=== PATIENT | female | born 1945 | race Caucasian/White ===

== ENCOUNTER → 2016-09-08 | Outpatient (CLI) | payer MEDICARE, OTHER ==
[2016-09-08 14:47] LABS: Blood Urea Nitrogen 23 mg/dL (7-17); Non-African American GFR(MDRD) >60 (>60 ml/min/1.73 sqM)
--- NOTE | 2016-09-08 16:05 | CT ---
EXAMINATION TYPE: CT urogram wo/w con DATE OF EXAM: 09/08/2016 3:41 PM COMPARISON: NONE HISTORY: 70-year-old female with gross hematuria TECHNIQUE: Contiguous axial scanning of the abdomen and pelvis performed without and with IV Contrast , patient injected with 100 mL of Omnipaque 300. Delayed images through the kidneys and bladder were obtained. Coronal/sagittal reconstructions performed. 3-D reconstructions generated on a dedicated in dependent workstation. CT DLP: 1105.2 mGycm Automated exposure control for dose reduction was used. FINDINGS: The heart is normal size without pericardial effusion. Lung bases clear without pleural effusion. No focal liver lesion or biliary ductal dilatation. Portal venous system is patent. Gallbladder, adrenal glands, spleen, and atrophic pancreas show no gross abnormality. There is a dive rticulum of the second portion of the duodenum projecting into the pancreatic head region. Multiple cortical defects are seen involving the right kidney giving it a lobulated appearance. There is symmetric uptake and excretion of contrast from the kidneys. No nephrolithiasis or hydronephrosis is seen. No suspicious renal lesion. No suspicious filling defects seen within the proximal collecting system or along the opacified porti ons of the ureters. Only the distal aspects of both ureters opacified but show no suspicious thickeni ng. No dilated small bowel, free fluid, or free air. No mesenteric or retroperitoneal lymphadenopathy. There is moderate stool burden and suspected prior appendectomy given some surgical material in the r ight lower quadrant. There is a 2.8 long segment of moderate circumferential wall thickening at the j unction of the cecum and ascending colon, axial series 12 image 71 and coronal series 16 image 53. Th is may reflect a prominent peristaltic contraction. Moderate stool burden without pericolonic inflamm atory change. There is a staple line relating to prior rectosigmoid resection and re-anastomosis. A f ew scattered sigmoid diverticula are noted without pericolonic inflammatory change. There is a Dye hernia in the umbilical region measuring 4.7 cm wide containing transverse colon. No obstructive or inflammatory changes. No suspicious filling defects seen along the opacified posterior portion of the bladder. Patient is status post hysterectomy. The left ovary is not visualized. There is a 5.7 cm cystic lesion in the right adnexa with possible surgical material. A thin internal septation is also suggested. No pelvic lymphadenopathy seen. Bones: Degenerative disc disease most severe at L2-L3 and L5-S1. There is degenerative grade 1 retrol isthesis at L2-L3 and at least moderate right neuroforaminal stenosis at this level. IMPRESSION: 1. MULTIPLE CORTICAL DEFECTS INVOLVING THE RIGHT KIDNEY GIVING IT A LOBULATED CONTOUR. FINDINGS COULD REFLECT MULTIPLE PRIOR VASCULAR OR INFECTIOUS INSULTS. CLINICALLY CORRELATE. 2. NO NEPHROLITHIASIS, SUSPICIOUS RENAL LESION, OR ABNORMALITY SEEN WITHIN THE COLLECTING SYSTEMS. ON LY THE DISTAL ASPECTS OF THE URETERS REMAIN UNOPACIFIED BUT SHOW NO ABNORMAL THICKENING. 3. A 5.7 CM CYSTIC LESION IN THE RIGHT ADNEXA LIKELY OF OVARIAN ORIGIN. THIS IS MILDLY COMPLEX WITH A N INTERNAL SEPTATION. ULTRASOUND TO FURTHER CHARACTERIZE AND TO DETERMINE SUBSEQUENT RECOMMENDATIONS. 4. EITHER A PROMINENT PERISTALTIC CONTRACTION OR ANNULAR NEOPLASM AT THE CECAL COLONIC JUNCTION. LESLY MMEND DIRECT VISUALIZATION. 5. A 4.7 CM DYE HERNIA OF THE UMBILICUS INVOLVING MID TRANSVERSE COLON.
== END | disposition home or self-care (01) ==
LOC: RADCTMAIN 14:10
PROVIDERS: ATTEND Urology
DX: R93.421 Abnormal radiologic findings on diagnostic imaging of right kidney (principal); R31.0 Gross hematuria; Z88.5 Allergy status to narcotic agent; Z88.1 Allergy status to other antibiotic agents
CPT/HCPCS: 82565; 84520; 74178; 36415; 74400; Q9967

== ENCOUNTER 2018-06-12 10:28 | Inpatient (IN) | payer MEDICARE, OTHER ==
[2018-06-12 13:22] VITALS: BMI 20.2
--- NOTE | 2018-06-12 14:03 | P.HPIM ---
History of Present Illness This is a pleasant 72 years old female with past medical history of GERD, GI bleed, hyperlipidemia, hypertension, osteoarthritis, fibromyalgia, right breast cancer with lumpectomy and status post chemoradiotherapy in 2003. Who presents because of recurrent nausea and vomiting for 3 days, fever and cough. Patient was transferred from [facility] for 3 day history of vomiting, diarrhea and intermittent abdominal pain with fever attended 0.5. She has CT of the abdomen showing possible cystitis and perinephritic stranding on the UA is negative however patient was started on Levaquin and large ovarian mass. Chest x-ray showing right infiltrate. Her nausea vomiting and loose bowel movement have resolved now however she has some coughing. Labs from [facility] reviewed and showing normal knee functions and WBC, mildly low potassium Review of Systems CONSTITUTIONAL: No fever, no malaise, no fatigue. HEENT: No recent visual problems or hearing problems. Denied any sore throat. CARDIOVASCULAR: No orthopnea, PND, no palpitations, no syncope. PULMONARY: No shortness of breath, no cough, no hemoptysis. GASTROINTESTINAL: No diarrhea, no nausea, no vomiting, no abdominal pain. Normoactive bowel sounds. NEUROLOGICAL: No headaches, no weakness, no numbness. HEMATOLOGICAL: Denies any bleeding or petechiae. GENITOURINARY: Denies any burning micturition, frequency, or urgency. MUSCULOSKELETAL/RHEUMATOLOGICAL: Denies any joint pain, swelling, or any muscle pain. ENDOCRINE: Denies any polyuria or polydipsia. Past Medical History Past Medical History: Cancer, Fibromyalgia, GERD/Reflux, GI Bleed, Hyperlipidemia, Hypertension, Memory Impairment, Osteoarthritis (OA), Pneumonia Additional Past Medical History / Comment(s): palpations, right breast cancer with lumpectomy had chemo and radiation in 2003, possible tia - unconfirmed, prior etoh hx clean for 20 years ago, GI bleed with infected abcess in colon requiring some resection and colostomy in 07/2012 which was reversed in 02/2013 History of Any Multi-Drug Resistant Organisms: None Reported Past Surgical History: Appendectomy, Bowel Resection, Breast Surgery, Section, Heart Catheterization, Hysterectomy Additional Past Surgical History / Comment(s): right breast lumpectomy, carpal tunnel surgery, left foot surgery,colon resection secondary to abcess with colostomy in 07/2012 which was reversed in 02/2013 Past Anesthesia/Blood Transfusion Reactions: No Reported Reaction Past Psychological History: No Psychological Hx Reported Smoking Status: Never smoker Past Alcohol Use History: None Reported Additional Past Alcohol Use History / Comment(s): pt had etoh hx states she only has 1-2 glasses a wine a day Past Drug Use History: None Reported - Past Family History Father Family Medical History: Myocardial Infarction (ME) Additional Family Medical History / Comment(s): at 49 Mother Family Medical History: Cancer Additional Family Medical History / Comment(s): of leukemia at 36 Medications and Allergies Home Medications Medication Instructions Recorded Confirmed Type ALPRAZolam [Xanax] 1 tab PO DAILY PRN 03/25/14 03/25/14 History Omeprazole [PriLOSEC] 20 mg PO [id number]-[id number] 03/25/14 03/25/14 History Pravastatin Sodium [Pravachol] 1 tab PO HS 03/25/14 03/25/14 History Pregabalin [Lyrica] 75 mg PO BID 03/25/14 03/25/14 History Ranitidine HCl [Zantac] 1 tab PO BID 03/25/14 03/25/14 History Hydrocodone/Acetaminophen [[place] 1 each PO Q4HR PRN #30 tab 03/27/14 Rx 5-325] Melatonin 1 mg PO HS PRN #30 tablet 03/27/14 Rx Allergies Allergy/AdvReac Type Severity Reaction Status Date / Time hydromorphone HCl AdvReac Hallucinati Verified 06/12/18 13:25 [From Dilaudid] ons metronidazole [From Flagyl] AdvReac Nausea & Verified 06/12/18 13:25 Vomiting Physical Exam GENERAL: The patient is alert and oriented x3, not in any acute distress. Well developed, well nourished. HEENT: Pupils are round and equally reacting to light. EOMI. No scleral icterus. No conjunctival pallor. Normocephalic, atraumatic. No pharyngeal erythema. No thyromegaly. CARDIOVASCULAR: S1 and S2 present. No murmurs, rubs, or gallops. PULMONARY: Chest is clear to auscultation, no wheezing or crackles. ABDOMEN: Soft, nontender, nondistended, normoactive bowel sounds. No palpable organomegaly. MUSCULOSKELETAL: No joint swelling or deformity. EXTREMITIES: No cyanosis, clubbing, or pedal edema. NEUROLOGICAL: Gross neurological examination did not reveal any focal deficits. SKIN: No rashes. Thrombosis Risk Factor Assmnt - Choose All That Apply Each Risk Factor Represents 2 Points: Age 61-74 years Thrombosis Risk Factor Assessment Total Risk Factor Score: 2 Thrombosis Risk Factor Assessment Level: Low Risk Assessment and Plan Assessment: Genitalia quite pneumonia Possible gastroenteritis, improving Recurrent Vomiting, improving Dehydration Large Ovarian Mass, newly diagnosed History of current History of gently Hyperlipidemia Essential hypertension Osteoarthritis History of fibromyalgia History of right breast cancer with lumpectomy and status post chemoradiotherapy in 2003. Plan: This is a pleasant 72 years old female who presents with gastroenteritis and ovarian mass. Continue with antibiotics with Levaquin. IV fluids. advance diet as tolerated. Sent blood culture and sputum culture.oxygen therapy, check influenza. 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 Continue same treatment. Continue with symptomatic treatment. Resume home medication. Monitor lytes and vitals. DVT and GI prophylaxis. Further recommendations of the clinical course of the patient DVT prophylaxis: Subcutaneous heparin GI Prophylaxis: Pepcid PT/OT: Pending Prognosis is guarded
[2018-06-12] MEDS ORDERED: LORazepam 2 MG/ML INJ IV PRN ×2 (14:26)
[2018-06-12] MEDS ORDERED: guaiFENesin SYRUP 100MG/5ML 200 MG/10 ML CUP PO PRN (15:56)
[2018-06-12] MEDS: LEVOFLOXACIN 500MG-D5W PMX 500 MG in DEXTROSE/WATER 1 100ML.BAG IVPB SCH (16:23)
[2018-06-12] MEDS: SODIUM CHLORIDE 0.9% 1,000 ML IV SCH (16:23)
--- NOTE | 2018-06-12 16:36 | US ---
EXAMINATION TYPE: US pelvis complete transvag DATE OF EXAM: 06/12/2018 COMPARISON: NONE CLINICAL HISTORY: right ovarian mass. No prior here, mass seen on imaging from another institution. TECHNIQUE: Transvaginal (TV) and Transabdominal (TA) . Transabdominal sonographic images of the pel vis were acquired. Transvaginal sonographic images were medically necessary to better assess the fol lowing anatomy: cystic mass Date of LMP: postmenopausal, no HRT. EXAM MEASUREMENTS: Uterus: Surgically absent cm Endometrial Stripe: Surgically absent cm Right Ovary: large cystic mass seen Left Ovary: Surgically absent cm history of hysterectomy and one oophorectomy 29 years ago, patient unsure which ovary was removed. 1. Uterus: Surgically absent 2. Endometrium: Surgically absent 3. Right Ovary: 9.2 x 6.0 x 8.9 cm cystic mass with septations, there appears to be an ovarian rind of tissue. 4. Left Ovary: Surgically absent 5. Bilateral Adnexa: large cystic mass right adnexal region. 6. Posterior cul-de-sac: no free fluid On transabdominal imaging the cystic mass appeared to sit to the left of the bladder, on transvaginal imaging the mass was definitely to the right side of the pelvis. IMPRESSION: There is a large cystic fluid collection in the pelvis. No solid pelvic mass. There is a 5.5 cm cystic fluid collection in the pelvis on the old CT scan of 09/08/2016. This is probably the alessandra e fluid and now appears increased.
[2018-06-12] MEDS: PANTOPRAZOLE 40 MG TABLET PO SCH (17:49)
[2018-06-12] MEDS: HEPARIN SODIUM,PORCINE 5,000 UNIT/ML 1 ML VIAL SQ SCH (17:49)
[2018-06-12] MEDS: THIAMINE 100 MG TAB PO SCH (17:49)
[2018-06-12] MEDS: OSELTAMIVIR 75 MG CAP PO SCH (17:49)
[2018-06-12] MEDS: HYDROcodone/APAP 10-325MG 1 EACH TAB PO PRN (17:52)
[2018-06-12] MEDS: PRAVASTATIN SODIUM 40 MG TAB PO SCH (20:37)
[2018-06-12] MEDS: POTASSIUM CHLORIDE ER 20 MEQ TAB.ER PO SCH (20:37)
[2018-06-12] MEDS: FAMOTIDINE 20 MG/2 ML VIAL IV SCH (20:37)
[2018-06-12] MEDS: METOPROLOL TARTRATE 25 MG TAB PO SCH (20:37)
[2018-06-12] MEDS: LORazepam 2 MG/ML INJ IV PRN (20:38)
[2018-06-13] MEDS: HEPARIN SODIUM,PORCINE 5,000 UNIT/ML 1 ML VIAL SQ SCH ×2 (06:05→18:20)
[2018-06-13] MEDS: OSELTAMIVIR 75 MG CAP PO SCH ×2 (06:07→18:20)
[2018-06-13] MEDS: SODIUM CHLORIDE 0.9% 1,000 ML IV SCH ×2 (06:07→18:18)
--- NOTE | 2018-06-13 08:20 | P.CON ---
Consult Note - . Consult date: 06/13/18 Assessment/Plan:: This is a 72-year-old white female 3 para 3003 status post DANICA LSO for endometriosis per Dr. garcia in the past. Patient presented as an admission from [facility] with the flu. She reports emesis for 5 days, sweating, increasing cough and fever. She is positive for influenza A. In the course of her workup, a computed tomography scan of the abdomen and pelvis was performed and this revealed a right cystic ovarian mass. Patient states that this time she is feeling improved. She continues to cough and have low-grade fever. Past obstetric history significant for normal spontaneous vaginal deliveries 2 , one section. Surgical history significant for DANICA LSO for endometriosis in the remote past per Dr. Medina. She had a right breast lumpectomy for cancer in 2003, followed up with chemotherapy and radiation. She was cared for by Dr. Jiang. She also has a history of colostomy secondary to what sounds like diverticular disease, cared for by Dr. Nino 5 years ago. A large colonic mass was removed at that time. Past medical history significant for hypercholesterolemia, fibromyalgia, osteoarthritis, hypertension, GERD. Breast cancer 2003 as noted above. Endometriosis in the remote past. Current medications from home Prilosec, Cymbalta, Bradley, Requip, Pravachol, Lopressor. Patient's primary care physician is Dr. Maynard. ALLERGIES include Flagyl to which reports nausea, diet and wanted to which reports "I went per [employer]." Family history mother at age 36 of leukemia. Father age 49 of myocardial infarction. She has a maternal aunt that had colon cancer. Social history negative for tobacco alcohol or drug use. Patient lives alone and [place]. She is . On exam she is 5 foot 6 inches, 57 kg, temperature 99.2, pulse 116, respirations 24, 92% O2 on 2 L of oxygen, blood pressure 150/87. Physical exam reveals poor dentition. No cervical lymphadenopathy, thyroid is negative. Breast exam reveals evidence of lumpectomy and radiation changes on the right breast. No nipple discharge, no axillary adenopathy, no other discernible lesions or masses. No skin dimpling. Cardiac exam reveals tachycardia, no obvious murmur click or rub. Chest exam reveals scattered rhonchi, patient is coughing frequently. Cough is productive for mucus. Abdomen is soft, distended , active bowel sounds. No rebound or guarding. No CVA tenderness. Extremities reveal diminished pulses, no edema. On pelvic exam external genitalia is hypo-estrogenized, age-appropriate. Vaginal cough reveals a firmness at the apex of the cuff. This is better delineated through rectal exam, stool sample sent to the lab for fit testing. There is a mass in the right hemipelvis that is firm, mobile, minimally tender. Rectal exam is otherwise negative. Ultrasound here reveals a right-sided cystic mass measuring 9.2 x 6.0 x 8.9 cm, it has septations but no calcifications and no solid components. The rest of the pelvis appears negative. Chest x-ray reveals a right pulmonary infiltrate. Lab dyscrasias noted with chloride 97, CO2 27, sodium 133, potassium 3.2, creatinine 0.5, calcium 8.2. Hemoglobin 15.1, hematocrit 45.1, WBCs 5.5, platelets 180,000. Impression: 72-year-old woman with multiple medical problems, currently admitted with the flu. Multiple lab dyscrasias noted. 9.2 cm cystic right pelvic mass, with a history of endometriosis and diverticulitis. Plan: OVA-1 testing has been requested and is pending. Continue medical management with Levaquin and correction of lab dyscrasias. I would consider following patient has an outpatient for further planning once ova testing has been received. Thank you for the consultation.
[2018-06-13] MEDS: METOPROLOL TARTRATE 25 MG TAB PO SCH ×2 (10:14→20:26)
[2018-06-13] MEDS: FAMOTIDINE 20 MG/2 ML VIAL IV SCH (10:15)
[2018-06-13] MEDS: FLUTICASONE 50MCG/SPRAY NASAL 16GM NASAL SCH (10:16)
[2018-06-13] MEDS: PANTOPRAZOLE 40 MG TABLET PO SCH ×2 (10:17→18:20)
[2018-06-13] MEDS: POTASSIUM CHLORIDE ER 20 MEQ TAB.ER PO SCH ×2 (10:17→20:23)
[2018-06-13] MEDS: DULoxetine HCL 60 MG CAPSULE.DR PO SCH (10:17)
[2018-06-13] MEDS: VENLAFAXINE HCL ER 150 MG CAP PO SCH (10:17)
[2018-06-13] MEDS: THIAMINE 100 MG TAB PO SCH ×2 (10:18→18:20)
--- NOTE | 2018-06-13 11:05 | XR ---
EXAMINATION TYPE: XR chest 1V portable DATE OF EXAM: 06/13/2018 COMPARISON: 07/10/2013 HISTORY: Cough possible pneumonia TECHNIQUE: Single frontal view of the chest is obtained. FINDINGS: Prominence to the right hilum. Subsegmental consolidation and small left effusion. Elevate d right hemidiaphragm. Arthropathy of the shoulders. No pneumothorax. Surgical clips overlying the ri ght axilla. Subsegmental changes right lung base. IMPRESSION: Bilateral lower lobe atelectasis or infiltrate with elevated right hemidiaphragm. Promin ence of the right hilum may reflect prominent pulmonary artery. Correlate clinically.
--- NOTE | 2018-06-13 11:12 | P.PN ---
Subjective This is a pleasant 72 years old female with past medical history of GERD, GI bleed, hyperlipidemia, hypertension, osteoarthritis, fibromyalgia, right breast cancer with lumpectomy and status post chemoradiotherapy in 2004. Who presents because of recurrent nausea and vomiting for 3 days, fever and cough. Patient was transferred from [facility] for 3 day history of vomiting, diarrhea and intermittent abdominal pain with fever attended 0.5. She has CT of the abdomen showing possible cystitis and perinephritic stranding on the UA is negative however patient was started on Levaquin and large ovarian mass. Chest x-ray showing right infiltrate. Her nausea vomiting and loose bowel movement have resolved now however she has some coughing. Labs from [facility] reviewed and showing normal knee functions and WBC, mildly low potassium 06/13/2018 Patients with dyspnea and coughing. She looks breathing quietly but she is tachypneic she has some secretions but nothing coming up with her dry cough. She denies chest pain. No abdominal pain or nausea vomiting she has normal bowel movements yesterday and looks like her bowel symptoms have improved. She looks anxious which could be related to her alcohol problem. Patient denies history of asthma or COPD. She says she hasn't smoked before. However she is telling me she uses inhaler at home about twice a week. Pulmonary team evaluated the patient. She is currently on Tamiflu and Levaquin. Normal saline at 75 mL/h.. She is also a considerable protocol. review of systems CONSTITUTIONAL: No fever, no malaise, no fatigue. HEENT: No recent visual problems or hearing problems. Denied any sore throat. CARDIOVASCULAR: No orthopnea, PND, no palpitations, no syncope. GASTROINTESTINAL: No diarrhea, no nausea, no vomiting, no abdominal pain. Normoactive bowel sounds. NEUROLOGICAL: No headaches, no weakness, no numbness. HEMATOLOGICAL: Denies any bleeding or petechiae. GENITOURINARY: Denies any burning micturition, frequency, or urgency. MUSCULOSKELETAL/RHEUMATOLOGICAL: Denies any joint pain, swelling, or any muscle pain. ENDOCRINE: Denies any polyuria or polydipsia. medication: Cymbalta, Pepcid, Flonase, potassium, heparin, [place], Ativan, levofloxacin, Lopressor, Tamiflu, Protonix, potassium chloride, Pravachol, Requip, thiamine and venlafaxine. Objective - Vital Signs Vital signs: Vital Signs Temp 99.2 F 06/13/18 05:27 Pulse 116 H 06/13/18 05:27 Resp 24 06/13/18 05:27 BP 150/87 06/13/18 05:27 Pulse Ox 92 L 06/13/18 05:27 Intake & Output 06/12/18 06/13/18 06/13/18 18:59 06:59 18:59 Intake Total 225 Balance 225 Weight 57 kg Intake: Intake, IV Titration 225 Amount Sodium Chloride 0.9% 1, 225 000 ml @ 75 mls/hr IV . [id number] ARMEN Rx#:[id number] Other: Voiding Method Toilet Toilet # Voids 1 - Exam GENERAL: The patient is alert and oriented x3, not in any acute distress. Well developed, well nourished. HEENT: Pupils are round and equally reacting to light. EOMI. No scleral icterus. No conjunctival pallor. Normocephalic, atraumatic. No pharyngeal erythema. No thyromegaly. CARDIOVASCULAR: S1 and S2 present. No murmurs, rubs, or gallops. -PULMONARY: Bilateral equal air entry, inspiratory crackles and expiratory wheezing. ABDOMEN: Soft, nontender, nondistended, normoactive bowel sounds. No palpable organomegaly. MUSCULOSKELETAL: No joint swelling or deformity. EXTREMITIES: No cyanosis, clubbing, or pedal edema. NEUROLOGICAL: Gross neurological examination did not reveal any focal deficits. SKIN: No rashes. - Labs Labs: Abnormal Lab Results - Last 24 Hours (Table) 06/12/18 Range/Units 15:07 Influenza Type A RNA Detected H (Not Detectd) Assessment and Plan Assessment: Genitalia quite pneumonia Possible gastroenteritis, improving Recurrent Vomiting, improving Dehydration Large Ovarian Mass, newly diagnosed History of current History of gently Hyperlipidemia Essential hypertension Osteoarthritis History of fibromyalgia History of right breast cancer with lumpectomy and status post chemoradiotherapy in 2003. Plan: This is a pleasant 72 years old female who presents with gastroenteritis and ovarian mass. Continue with antibiotics with Levaquin. IV fluids. advance diet as tolerated. Sent blood culture and sputum culture.oxygen therapy, check influenza. 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 Continue same treatment. Continue with symptomatic treatment. Resume home medication. Monitor lytes and vitals. DVT and GI prophylaxis. Further recommendations of the clinical course of the patient DVT prophylaxis: Subcutaneous heparin GI Prophylaxis: Pepcid PT/OT: Pending Prognosis is guarded
[2018-06-13] MEDS: GABAPENTIN 100 MG CAP PO SCH ×2 (13:34→20:23)
[2018-06-13 14:40] LABS: Appearance,Urine Clear (Clear); Bilirubin,Urine Negative (Negative); Blood,Urine Trace (Negative); Color,Urine Light Yellow; Glucose,Urine (UA) Negative (Negative); Ketones,Urine Negative (Negative); Leukocyte Esterase,Urine Negative (Negative); Mucus,Urine Rare /hpf; Nitrite,Urine Negative (Negative); PH, Urine 6.5 (5.0-8.0); Protein,Urine Negative (Negative); RBC,Urine 2 /hpf (0-5); Specific Gravity,Urine 1.009 (1.001-1.035); Squamous Epithelial Cell,Urine 1 /hpf (0-4); Urobilinogen,Urine <2.0 mg/dL (<2.0); WBC,Urine 1 /hpf (0-5)
[2018-06-13] MEDS ORDERED: LEVOFLOXACIN 500 MG TAB PO SCH (16:00)
[2018-06-13] MEDS: LEVOFLOXACIN 500MG-D5W PMX 500 MG in DEXTROSE/WATER 1 100ML.BAG IVPB SCH (18:19)
[2018-06-13] MEDS: methylPREDNISolone SOD SUCCI 40 MG/ML 1 ML VIAL IV SCH (18:24)
[2018-06-13] MEDS: HYDROcodone/APAP 10-325MG 1 EACH TAB PO PRN (20:23)
[2018-06-13] MEDS: PRAVASTATIN SODIUM 40 MG TAB PO SCH (20:24)
[2018-06-14] MEDS: methylPREDNISolone SOD SUCCI 40 MG/ML 1 ML VIAL IV SCH ×4 (00:05→23:20)
[2018-06-14] MEDS: OSELTAMIVIR 75 MG CAP PO SCH ×2 (05:59→17:16)
[2018-06-14] MEDS: SODIUM CHLORIDE 0.9% 1,000 ML IV SCH ×2 (05:59→21:16)
[2018-06-14] MEDS: HEPARIN SODIUM,PORCINE 5,000 UNIT/ML 1 ML VIAL SQ SCH ×2 (05:59→17:23)
[2018-06-14] MEDS: HYDROcodone/APAP 10-325MG 1 EACH TAB PO PRN ×4 (05:59→23:19)
--- NOTE | 2018-06-14 07:56 | P.PN ---
Subjective Progress Note Date: 06/14/18 Objective - Vital Signs Vital signs: Vital Signs Temp 96.5 F L 06/14/18 05:00 Pulse 79 06/14/18 05:00 Resp 18 06/14/18 05:00 BP 119/70 06/14/18 05:00 Pulse Ox 95 06/14/18 05:00 Intake & Output 06/13/18 06/14/18 06/14/18 18:59 06:59 18:59 Intake Total 600 1380 Balance 600 1380 Intake: IV 600 900 Sodium Chloride 0.9% 1, 600 900 000 ml @ 75 mls/hr IV . [id number] ARMEN Rx#:[id number] Oral 480 Other: Voiding Method Toilet Toilet # Voids 3 1 # Bowel Movements 2 - Constitutional General appearance: Present: average body habitus, cooperative - EENT Eyes: Present: PERRLA ENT: Present: hearing grossly normal - Neck Neck: Present: normal ROM Thyroid: bilateral: normal size - Respiratory Respiratory: bilateral: diminished, rales, rhonchi - Cardiovascular Rhythm: regular - Gastrointestinal General gastrointestinal: Present: normal bowel sounds - Integumentary Integumentary: Present: normal - Neurologic Neurologic: Present: CNII-XII intact - Musculoskeletal Musculoskeletal: Present: gait normal - Psychiatric Psychiatric: Present: A&O x's 3, appropriate affect, intact judgment & insight - Labs Labs: Abnormal Lab Results - Last 24 Hours (Table) 06/13/18 Range/Units 09:50 Urine Blood Trace H (Negative) Urine Mucus Rare H (None) /hpf Microbiology - Last 24 Hours (Table) 06/12/18 15:17 Blood Culture - Preliminary Blood No Growth after 24 hours Assessment and Plan Assessment: Pneumonia, flu, right sided pelvic mass noted. Clinical progress noted today. Plan: I discussed with the patient that I would follow up with a pelvic mass on an outpatient basis. We are still awaiting OVA-1 testing, which would give us an indication as to whether this is a malignancy or of benign nature. I discussed the case yesterday with admitting physician. At this time I will sign off, patient will follow-up with me in the office 1-2 weeks after discharge for further discussion and planning. Time with Patient: Less than 30
[2018-06-14] MEDS: POTASSIUM CHLORIDE ER 20 MEQ TAB.ER PO SCH ×2 (08:00→21:06)
[2018-06-14] MEDS: METOPROLOL TARTRATE 25 MG TAB PO SCH ×2 (08:00→21:05)
[2018-06-14] MEDS: PANTOPRAZOLE 40 MG TABLET PO SCH ×2 (08:00→17:16)
[2018-06-14] MEDS: GABAPENTIN 100 MG CAP PO SCH ×2 (08:00→21:05)
[2018-06-14] MEDS: VENLAFAXINE HCL ER 150 MG CAP PO SCH (08:04)
[2018-06-14] MEDS: DULoxetine HCL 60 MG CAPSULE.DR PO SCH (08:04)
[2018-06-14] MEDS: THIAMINE 100 MG TAB PO SCH ×2 (08:07→17:16)
--- NOTE | 2018-06-14 11:02 | CDI ---
Documentation Clarification Form Date: 06/14/2018 10:42:06 AM From: Luz Ayala RN CCDS Admit Date: 06/12/2018 1:07:00 PM Patient Name: Tiffanie Avelar Visit Number: [id number] Discharge Date: ATTENTION: The Clinical Documentation Specialists (CDI) and [facility] Coding Staff appreciate your assistance in clarifying documentation. Please respond to the clarification below the line at the bottom and electronically sign. The CDI & [facility] Coding staff will review the response and follow-up if needed. Please note: Queries are made part of the Legal Health Record. If you have any questions, please contact the author of this message via ITS. Dr. Jones Sheet Genitalia quite Pneumonia is being documented in the History and Physical 2018 History/Risk Factors: Pneumonia, Breast Cancer s/p chemo/radiation Clinical Indicators: 72 Yr old female presented with Nausea, vomiting, fever and cough Vital signs: 101/64 97.4 Hr 78 - 109 rr 18 92% ra Influenza type A positive CXR - Bilateral lower lobe atelectasis or infiltrate with elevated right hemidiaphragm . Prominence of the right hilum may reflect prominent pulmonary artery. Treatment: Levaquin IVPB; Tamiflu; In order to capture the severity of condition, please clarify if the condition signifies and you are treating for: Pneumonia, specify casual organism POA (if known) Pneumonia with Influenza POA Other, please specify Unable to determine (Last Revision: August 2017) community acquired pna , suspected due to influenza virus and possible gram negative bacteria or atypical M.O. MTDD
[2018-06-14 11:43] LABS: Basophils % (A) 0 %; Eosinophils % (A) 1 %; HCT 36.9 % (34.0-46.0); HGB 11.7 gm/dL (11.4-16.0); Lymphocytes # (A) 0.2 k/uL (1.0-4.8); Lymphocytes % (A) 13 %; MCH 30.1 pg (25.0-35.0); MCHC 31.7 g/dL (31.0-37.0); MCV 95.1 fL (80.0-100.0); Mean Platelet Volume 7.9; Monocytes # (A) 0.1 k/uL (0-1.0); Monocytes % (A) 6 %; Neutrophils % (A) 77 %; Platelet Count 132 k/uL (150-450); RBC 3.88 m/uL (3.80-5.40); RDW 12.5 % (11.5-15.5)
[2018-06-14] MEDS: FLUTICASONE 50MCG/SPRAY NASAL 16GM NASAL SCH (11:50)
[2018-06-14 11:53] LABS: ALT 30 U/L (9-52); AST 23 U/L (14-36); Albumin 3.1 g/dL (3.5-5.0); Alkaline Phosphatase 44 U/L (38-126); Anion Gap 6 mmol/L; Blood Urea Nitrogen 9 mg/dL (7-17); Calcium 8.5 mg/dL (8.4-10.2); Carbon Dioxide 30 mmol/L (22-30); Chloride 95 mmol/L (98-107); Glucose 150 mg/dL (74-99); Potassium 4.5 mmol/L (3.5-5.1); Sodium 131 mmol/L (137-145); Total Bilirubin 0.2 mg/dL (0.2-1.3); Total Protein 5.8 g/dL (6.3-8.2)
[2018-06-14] MEDS ORDERED: RX INFO: IV CONTRAST WAS GIVEN 1 EACH MISC MISCELLANE PRN (12:16)
[2018-06-14 12:19] LABS: WBC 1.4 k/uL (3.8-10.6)
[2018-06-14] MEDS: LORazepam 2 MG/ML INJ IV PRN (12:36)
--- NOTE | 2018-06-14 14:32 | P.CNPUL ---
<Lauren Mccormack M - Last Filed: 06/14/18 14:06> History of Present Illness Consult date: 06/14/18 Requesting physician: Robert E Sheet Reason for consult: dyspnea, cough, pneumonia Chief complaint: Nausea and vomiting, shortness of breath, fever and cough History of present illness: This is a 72-year-old white female patient of Dr. Dione Maynard, with past medical history of GERD, hypertension, hyperlipidemia, osteoarthritis, breast cancer status post lumpectomy and chemo radiotherapy in 2003, who was transferred from [facility] on 06/12/2018 where she went for evaluation of 3 day history of vomiting, diarrhea and intermittent abdominal pain. Patient was afebrile, she was having cough, and some shortness of breath as well. CT of the abdomen showed possible cystitis and perinephric stranding, and a large ovarian mass. Chest x-ray showed bilateral lower lobe atelectasis or infiltrate with elevated right hemidiaphragm, and prominence of the right hilum. Influenza screen was positive for influenza A. today's blood work showed white blood cell count of 1.4, hemoglobin of 11.7, sodium of 131, potassium is 4.5, chloride is 95, CO2 was 30, BUN was 9, creatinine is 0.37, LFT 's were within normal limits. Urinalysis showed trace blood, but did not appear infected. Cultures were sent, and are negative. Patient was started on Tamiflu, antibiotic coverage, Levaquin. Patient states she is a lifetime nonsmoker, but she was exposed to secondhand smoke from her ex-. On examination patient is quite wheezy, she has been afebrile while in the hospital. Currently on 2 L per nasal cannula pulse ox is 97%, hemodynamically she stable. She is requesting to go home today. Was evaluated by the SELF PAY COLLECTOR service in regards to the cystic ovarian mass. Review of Systems All systems: negative Constitutional: Denies chills, Denies fever Eyes: denies blurred vision, denies pain Ears, nose, mouth and throat: Denies headache, Denies sore throat Cardiovascular: Denies chest pain, Denies shortness of breath Respiratory: Reports cough with sputum, Reports dyspnea, Reports respiratory infections, Reports wheezing, Denies cough Gastrointestinal: Reports abdominal pain, Denies diarrhea, Denies nausea, Denies vomiting Genitourinary: Denies dysuria, Denies hematuria Musculoskeletal: Denies myalgias Integumentary: Denies pruritus, Denies rash Neurological: Denies numbness, Denies weakness Psychiatric: Denies anxiety, Denies depression Endocrine: Denies fatigue, Denies weight change Past Medical History Past Medical History: Cancer, Fibromyalgia, GERD/Reflux, GI Bleed, Hyperlipidemia, Hypertension, Memory Impairment, Osteoarthritis (OA), Pneumonia Additional Past Medical History / Comment(s): palpations, right breast cancer with lumpectomy had chemo and radiation in 2003, possible tia - unconfirmed, prior etoh hx clean for 20 years ago, GI bleed with infected abcess in colon requiring some resection and colostomy in 07/2012 which was reversed in 02/2013 History of Any Multi-Drug Resistant Organisms: None Reported Past Surgical History: Appendectomy, Bowel Resection, Breast Surgery, Section, Heart Catheterization, Hysterectomy Additional Past Surgical History / Comment(s): right breast lumpectomy, carpal tunnel surgery, left foot surgery,colon resection secondary to abcess with colostomy in 07/2012 which was reversed in 02/2013 Past Anesthesia/Blood Transfusion Reactions: No Reported Reaction Past Psychological History: No Psychological Hx Reported Smoking Status: Never smoker Past Alcohol Use History: None Reported Additional Past Alcohol Use History / Comment(s): pt had etoh hx states she only has 1-2 glasses a wine a day Past Drug Use History: None Reported - Past Family History Father Family Medical History: Myocardial Infarction (ID) Additional Family Medical History / Comment(s): at 49 Mother Family Medical History: Cancer Additional Family Medical History / Comment(s): of leukemia at 36 Medications and Allergies Home Medications Medication Instructions Recorded Confirmed Type Albuterol Sulfate [Proair 1 puff INHALATION RT-DAILY 06/12/18 06/12/18 History Respiclick] DULoxetine HCL [Cymbalta] 60 mg PO DAILY 06/12/18 06/12/18 History HYDROcodone/APAP 10-325MG [Opal 1 tab PO Q6HR PRN 06/12/18 06/12/18 History 10-325] Metoprolol Tartrate [Lopressor] 25 mg PO BID 06/12/18 06/12/18 History Omeprazole [PriLOSEC] 20 mg PO AC-BID 06/12/18 06/12/18 History Potassium Chloride [Klor-Con 20] 20 meq PO BID 06/12/18 06/12/18 History Pravastatin Sodium [Pravachol] 40 mg PO HS 06/12/18 06/12/18 History RX: Fluticasone Nasal [place] 1 spray NASAL DAILY 06/12/18 06/12/18 History [Flonase Nasal [place]] Venlafaxine HCl ER [Effexor XR] 150 mg PO DAILY 06/12/18 06/12/18 History rOPINIRole HCL [Requip] 1 mg PO HS 06/12/18 06/12/18 History Allergies Allergy/AdvReac Type Severity Reaction Status Date / Time hydromorphone HCl AdvReac Hallucinati Verified 06/12/18 19:24 [From Dilaudid] ons metronidazole [From Flagyl] AdvReac Nausea & Verified 06/12/18 19:24 Vomiting Physical Exam Vitals: Vital Signs Temp Pulse Resp BP Pulse Ox 06/14/18 11:18 98.8 F 92 17 118/59 97 06/14/18 05:00 96.5 F L 79 18 119/70 95 06/14/18 00:00 18 06/13/18 21:00 96.8 F L 107 H 18 107/65 93 L 06/13/18 20:23 92 L Intake and Output 06/13/18 06/14/18 06/14/18 22:59 06:59 14:59 Intake Total 780 600 Balance 780 600 Intake: IV 300 600 Sodium Chloride 0.9% 1, 300 600 000 ml @ 75 mls/hr IV . [id number] [facility] Rx#:[id number] Oral 480 Other: Voiding Method Toilet Toilet Toilet # Voids 1 1 GENERAL EXAM: Alert, pleasant, 72-year-old white female, comfortable in no apparent distress. HEAD: Normocephalic/atraumatic. EYES: Normal reaction of pupils, equal size. Conjunctiva pink, sclera white. NOSE: Clear with pink turbinates. THROAT: No erythema or exudates. NECK: No masses, no JVD, no thyroid enlargement, no adenopathy. CHEST: No chest wall deformity. Symmetrical expansion. LUNGS: Equal air entry with diffuse wheezes CVS: Regular rate and rhythm, normal S1 and S2, no gallops, no murmurs, no rubs ABDOMEN: Soft, nontender. No hepatosplenomegaly, normal bowel sounds, no guarding or rigidity. EXTREMITIES: No clubbing, no edema, no cyanosis, 2+ pulses and upper and lower extremities. MUSCULOSKELETAL: Muscle strength and tone normal. SPINE: No scoliosis or deformity SKIN: No rashes CENTRAL NERVOUS SYSTEM: Alert and oriented -3. No focal deficits, tone is normal in all 4 extremities. PSYCHIATRIC: Alert and oriented -3. Appropriate affect. Intact judgment and insight. Results - Laboratory Findings CBC and BMP: 06/14/18 11:26 06/14/18 11:26 Abnormal lab findings: Abnormal Labs 06/12/18 06/13/18 06/14/18 15:07 09:50 11:26 WBC 1.4 L* Plt Count 132 L Neutrophils # 1.0 L Lymphocytes # 0.2 L Sodium Chloride Creatinine Glucose Total Protein Albumin Urine Blood Trace H Urine Mucus Rare H Influenza Type A RNA Detected H 06/14/18 11:26 WBC Plt Count Neutrophils # Lymphocytes # Sodium 131 L Chloride 95 L Creatinine 0.37 L Glucose 150 H Total Protein 5.8 L Albumin 3.1 L Urine Blood Urine Mucus Influenza Type A RNA - Diagnostic Findings Chest x-ray: report reviewed, image reviewed Additional studies: Pelvic/transvaginal ultrasound results reviewed Assessment and Plan Plan: Assessment: #1. Acute influenza A infection, rule out possibility of pneumonia, chest x- ray showed bilateral lower lobe infiltrates/atelectasis and prominence of the right hilum. Rule out metastatic disease or primary lung cancer #2. Nausea, vomiting, shortness of breath, related to the above #3. Leukopenia, mild thrombocytopenia #4. Mild hyponatremia, likely related to history of nausea and vomiting, patient is on IV hydration #5. Right-sided ovarian mass measuring 9.2 right 6.0 x 8.9 cm #6. History of right breast cancer with lumpectomy and chemo radiotherapy in 2003 #7. History of transabdominal hysterectomy and left oophorectomy for endometriosis #8. Hypertension, hyperlipidemia #9. Fibromyalgia #10. Osteoarthritis #11. Lifetime nonsmoker Plan: Continue current medical treatment, current antibiotics coverage, Tamiflu. We will obtain CT chest with contrast to rule out the possibility of metastatic lung disease or primary lung cancer. Continue IV steroids, bronchodilators bronchodilators. I performed a history & physical examination of the patient and discussed their management with my nurse practitioner, Lauren Mccormack. I reviewed the nurse practitioner's note and agree with the documented findings and plan of care. Lung sounds are positive for diffuse wheezes throughout the lung sanz. The findings and the impression was discussed with the patient. I attest to the documentation by the nurse practitioner. Time with Patient: Greater than 30 <Eric Lainez - Last Filed: 06/14/18 19:49> Physical Exam Vitals: Vital Signs Temp Pulse Resp BP Pulse Ox 06/14/18 11:18 98.8 F 92 17 118/59 97 06/14/18 05:00 96.5 F L 79 18 119/70 95 06/14/18 00:00 18 06/13/18 21:00 96.8 F L 107 H 18 107/65 93 L 06/13/18 20:23 92 L Intake and Output 06/14/18 06/14/18 06/14/18 06:59 14:59 22:59 Intake Total 600 600 Balance 600 600 Intake: IV 600 600 Sodium Chloride 0.9% 1, 600 600 000 ml @ 75 mls/hr IV . [id number] [facility] Rx#:[id number] Other: Voiding Method Toilet Toilet Toilet # Voids 1 Results - Laboratory Findings CBC and BMP: 06/14/18 11:26 06/14/18 11:26 Abnormal lab findings: Abnormal Labs 06/12/18 06/13/18 06/14/18 15:07 09:50 11:26 WBC 1.4 L* Plt Count 132 L Neutrophils # 1.0 L Lymphocytes # 0.2 L Sodium Chloride Creatinine Glucose Total Protein Albumin Urine Blood Trace H Urine Mucus Rare H Influenza Type A RNA Detected H 06/14/18 11:26 WBC Plt Count Neutrophils # Lymphocytes # Sodium 131 L Chloride 95 L Creatinine 0.37 L Glucose 150 H Total Protein 5.8 L Albumin 3.1 L Urine Blood Urine Mucus Influenza Type A RNA Assessment and Plan Plan: This is a 72-year-old female patient was seen along with the nurse practitioner. This is a joint evaluation. The patient has a acute influenza A respiratory tract infection/bronchitis. There was a consented the patient has some right hilar fullness. Based on that the CAT scan of the chest was done that came back unremarkable. Meanwhile, the patient is being treated with Tamiflu. She is on a combination of bronchodilators. She is on Levaquin. She is on Tamiflu. She is also on IV Solu-Medrol. She is being worked up for an ovarian mass. We'll continue to follow. No indication for any intrathoracic malignancy based on the CAT scan of the chest.
--- NOTE | 2018-06-14 15:03 | CT ---
EXAMINATION TYPE: CT chest w con DATE OF EXAM: 06/14/2018 COMPARISON: 07/09/2013 HISTORY: SOB. Cough CT DLP: 240.3 mGycm Automated exposure control for dose reduction was used. CONTRAST: CT scan of the chest is performed with IV Contrast, patient injected with 100 mL of Isovue 300. FINDINGS: LUNGS: Right apical pleural thickening and scarring redemonstrated. The lungs are otherwise grossly c lear, there is no concerning parenchymal mass or nodule identified. There is no pleural effusion or pneumothorax seen. The tracheobronchial tree is patent. MEDIASTINUM: There are no greater than 1 cm hilar or mediastinal lymph nodes. No pericardial effusi on is seen. Thoracic aorta is of normal caliber. The heart is not enlarged. UPPER ABDOMEN: No significant abnormality appreciated. OTHER: No additional significant abnormality is seen. IMPRESSION: 1.Right apical pleural thickening and scarring redemonstrated. Otherwise unremarkable study.
[2018-06-14] MEDS: LEVOFLOXACIN 500MG-D5W PMX 500 MG in DEXTROSE/WATER 1 100ML.BAG IVPB SCH (17:15)
[2018-06-14] MEDS: PRAVASTATIN SODIUM 40 MG TAB PO SCH (21:06)
--- NOTE | 2018-06-15 00:33 | P.PN ---
Subjective Progress Note Date: 06/14/18 Principal diagnosis: Acute influenza A infection This is a pleasant 72 years old female with past medical history of GERD, GI bleed, hyperlipidemia, hypertension, osteoarthritis, fibromyalgia, right breast cancer with lumpectomy and status post chemoradiotherapy in 2003. Who presents because of recurrent nausea and vomiting for 3 days, fever and cough. Patient was transferred from [facility] for 3 day history of vomiting, diarrhea and intermittent abdominal pain with fever attended 0.5. She has CT of the abdomen showing possible cystitis and perinephritic stranding on the UA is negative however patient was started on Levaquin and large ovarian mass. Chest x-ray showing right infiltrate. Her nausea vomiting and loose bowel movement have resolved now however she has some coughing. Labs from [facility] reviewed and showing normal knee functions and WBC, mildly low potassium 06/13/2018 Patients with dyspnea and coughing. She looks breathing quietly but she is tachypneic she has some secretions but nothing coming up with her dry cough. She denies chest pain. No abdominal pain or nausea vomiting she has normal bowel movements yesterday and looks like her bowel symptoms have improved. She looks anxious which could be related to her alcohol problem. Patient denies history of asthma or COPD. She says she hasn't smoked before. However she is telling me she uses inhaler at home about twice a week. Pulmonary team evaluated the patient. She is currently on Tamiflu and Levaquin. Normal saline at 75 mL/h.. She is also a considerable protocol. 06/14/2018 Patient denied any complaints of chest pain or worsening shortness of breath. Breathing status improving. Patient is being continued on Tamiflu and antibiotics in the form of Levaquin. Patient was seen by pulmonary. No fever no chills. Continued on IV methylprednisolone. review of systems CONSTITUTIONAL: No fever, no malaise, no fatigue. HEENT: No recent visual problems or hearing problems. Denied any sore throat. CARDIOVASCULAR: No orthopnea, PND, no palpitations, no syncope. GASTROINTESTINAL: No diarrhea, no nausea, no vomiting, no abdominal pain. Normoactive bowel sounds. NEUROLOGICAL: No headaches, no weakness, no numbness. HEMATOLOGICAL: Denies any bleeding or petechiae. GENITOURINARY: Denies any burning micturition, frequency, or urgency. MUSCULOSKELETAL/RHEUMATOLOGICAL: Denies any joint pain, swelling, or any muscle pain. ENDOCRINE: Denies any polyuria or polydipsia. Objective - Vital Signs Vital signs: Vital Signs Temp 98.8 F 06/14/18 11:18 Pulse 92 06/14/18 11:18 Resp 17 06/14/18 11:18 BP 118/59 06/14/18 11:18 Pulse Ox 97 06/14/18 11:18 Intake & Output 06/13/18 06/14/18 06/14/18 18:59 06:59 18:59 Intake Total 600 1380 600 Balance 600 1380 600 Intake: IV 600 900 600 Sodium Chloride 0.9% 1, 600 900 600 000 ml @ 75 mls/hr IV . [id number] [facility] Rx#:[id number] Oral 480 Other: Voiding Method Toilet Toilet Toilet # Voids 3 1 # Bowel Movements 2 - Exam GENERAL: The patient is alert and oriented x3, not in any acute distress. Well developed, well nourished. HEENT: Pupils are round and equally reacting to light. EOMI. No scleral icterus. No conjunctival pallor. Normocephalic, atraumatic. No pharyngeal erythema. No thyromegaly. CARDIOVASCULAR: S1 and S2 present. No murmurs, rubs, or gallops. -PULMONARY: Bilateral equal air entry, inspiratory crackles and expiratory wheezing. ABDOMEN: Soft, nontender, nondistended, normoactive bowel sounds. No palpable organomegaly. MUSCULOSKELETAL: No joint swelling or deformity. EXTREMITIES: No cyanosis, clubbing, or pedal edema. NEUROLOGICAL: Gross neurological examination did not reveal any focal deficits. SKIN: No rashes. - Labs CBC & Chem 7: 06/14/18 11:26 06/14/18 11:26 Labs: Abnormal Lab Results - Last 24 Hours (Table) 06/14/18 06/14/18 Range/Units 11:26 11:26 WBC 1.4 L* (3.8-10.6) k/uL Plt Count 132 L (150-450) k/uL Neutrophils # 1.0 L (1.3-7.7) k/uL Lymphocytes # 0.2 L (1.0-4.8) k/uL Sodium 131 L (137-145) mmol/L Chloride 95 L (98-107) mmol/L Creatinine 0.37 L (0.52-1.04) mg/dL Glucose 150 H (74-99) mg/dL Total Protein 5.8 L (6.3-8.2) g/dL Albumin 3.1 L (3.5-5.0) g/dL Microbiology - Last 24 Hours (Table) 06/12/18 15:17 Blood Culture - Preliminary Blood No Growth after 24 hours Assessment and Plan Assessment: Acute influenza a infection. Possible pneumonia. Possible gastroenteritis, improving Recurrent Vomiting, improving Dehydration Large Ovarian Mass, newly diagnosed History of current History of gently Hyperlipidemia Essential hypertension Osteoarthritis History of fibromyalgia History of right breast cancer with lumpectomy and status post chemoradiotherapy in 2003. Plan: This is a pleasant 72 years old female who presents with gastroenteritis and ovarian mass. Continue with antibiotics with Levaquin. IV fluids. advance diet as tolerated. Sent blood culture and sputum culture.oxygen therapy, PAPER GOODS MACHINE OPERATOR consult for ovarian mass. Labs and medication were reviewed. Continue same treatment. Continue with symptomatic treatment. Resume home medication. Monitor lytes and vitals. DVT and GI prophylaxis. Further recommendations of the clinical course of the patient DVT prophylaxis: Subcutaneous heparin GI Prophylaxis: Pepcid PT/OT: Pending Prognosis is guarded Time with Patient: Greater than 30
[2018-06-15] MEDS: OSELTAMIVIR 75 MG CAP PO SCH ×2 (06:03→17:35)
[2018-06-15] MEDS: HEPARIN SODIUM,PORCINE 5,000 UNIT/ML 1 ML VIAL SQ SCH ×2 (06:03→17:34)
[2018-06-15] MEDS: HYDROcodone/APAP 10-325MG 1 EACH TAB PO PRN ×3 (06:03→18:33)
[2018-06-15] MEDS: DULoxetine HCL 60 MG CAPSULE.DR PO SCH (08:46)
[2018-06-15] MEDS: SODIUM CHLORIDE 0.9% 1,000 ML IV SCH (08:46)
[2018-06-15] MEDS: GABAPENTIN 100 MG CAP PO SCH ×2 (08:46→20:34)
[2018-06-15] MEDS: METOPROLOL TARTRATE 25 MG TAB PO SCH ×2 (08:46→20:35)
[2018-06-15] MEDS: POTASSIUM CHLORIDE ER 20 MEQ TAB.ER PO SCH ×2 (08:46→20:35)
[2018-06-15] MEDS: VENLAFAXINE HCL ER 150 MG CAP PO SCH (08:46)
[2018-06-15] MEDS: FLUTICASONE 50MCG/SPRAY NASAL 16GM NASAL SCH (08:46)
[2018-06-15] MEDS: PANTOPRAZOLE 40 MG TABLET PO SCH ×2 (08:46→17:34)
[2018-06-15] MEDS: methylPREDNISolone SOD SUCCI 40 MG/ML 1 ML VIAL IV SCH ×2 (08:47→17:34)
[2018-06-15] MEDS: THIAMINE 100 MG TAB PO SCH ×2 (12:46→17:34)
[2018-06-15] MEDS: LEVOFLOXACIN 500MG-D5W PMX 500 MG in DEXTROSE/WATER 1 100ML.BAG IVPB SCH (17:33)
--- NOTE | 2018-06-15 19:19 | P.PN ---
Subjective Progress Note Date: 06/15/18 This is a 72-year-old white female patient of Dr. Dione Maynard, with past medical history of GERD, hypertension, hyperlipidemia, osteoarthritis, breast cancer status post lumpectomy and chemo radiotherapy in 2004, who was transferred from [facility] on 06/12/2018 where she went for evaluation of 3 day history of vomiting, diarrhea and intermittent abdominal pain. Patient was afebrile, she was having cough, and some shortness of breath as well. CT of the abdomen showed possible cystitis and perinephric stranding, and a large ovarian mass. Chest x-ray showed bilateral lower lobe atelectasis or infiltrate with elevated right hemidiaphragm, and prominence of the right hilum. Influenza screen was positive for influenza A. today's blood work showed white blood cell count of 1.4, hemoglobin of 11.7, sodium of 131, potassium is 4.5, chloride is 95, CO2 was 30, BUN was 9, creatinine is 0.37, LFT 's were within normal limits. Urinalysis showed trace blood, but did not appear infected. Cultures were sent, and are negative. Patient was started on Tamiflu, antibiotic coverage, Levaquin. Patient states she is a lifetime nonsmoker, but she was exposed to secondhand smoke from her ex-. On examination patient is quite wheezy, she has been afebrile while in the hospital. Currently on 2 L per nasal cannula pulse ox is 97%, hemodynamically she stable. She is requesting to go home today. Was evaluated by the UNDERGRADUATE ADVISOR service in regards to the cystic ovarian mass. On today's evaluation of 06/15/2018, the patient has no specific complaints. The patient is feeling better. She is less short of breath. Denies having any chest pain. Bronchospasm wheezing is also subsided and improved. The patient remains on a combination of Tamiflu and Levaquin. She had checked positive for influenza. No fever. No chills no night sweats. She remains on DuoNeb nebulized treatments around the clock. She is also on IV Solu Medrol. A CAT scan of the chest was also done yesterday that showed no evidence of any pulmonary lesions or nodules. There is some right apical pleural thickening and scarring and the rest of the lungs are essentially clear. No pneumonia. No pulmonary lesions. No greater than 1 cm mediastinal lymphadenopathy. Objective - Vital Signs Vital signs: Vital Signs Temp 97.0 F L 06/15/18 16:17 Pulse 99 06/15/18 16:17 Resp 19 06/15/18 16:17 BP 137/84 06/15/18 16:17 Pulse Ox 94 L 06/15/18 16:17 Intake & Output 06/15/18 06/15/18 06/16/18 06:59 18:59 06:59 Intake Total 1370 600 Balance 1370 600 Intake: IV 300 600 Sodium Chloride 0.9% 1, 300 600 000 ml @ 75 mls/hr IV . [id number] [facility] Rx#:[id number] Oral 1070 Other: Voiding Method Toilet Toilet # Voids 2 - Exam Gen. appearance she is calm and comfortable likely distress. HEAD: Normocephalic/atraumatic. EYES: Normal reaction of pupils, equal size. Conjunctiva pink, sclera white. NOSE: Clear with pink turbinates. THROAT: No erythema or exudates. NECK: No masses, no JVD, no thyroid enlargement, no adenopathy. CHEST: No chest wall deformity. Symmetrical expansion. LUNGS: Equal air entry with diffuse wheezes CVS: Regular rate and rhythm, normal S1 and S2, no gallops, no murmurs, no rubs ABDOMEN: Soft, nontender. No hepatosplenomegaly, normal bowel sounds, no guarding or rigidity. EXTREMITIES: No clubbing, no edema, no cyanosis, 2+ pulses and upper and lower extremities. MUSCULOSKELETAL: Muscle strength and tone normal. SPINE: No scoliosis or deformity SKIN: No rashes CENTRAL NERVOUS SYSTEM: Alert and oriented -3. No focal deficits, tone is normal in all 4 extremities. PSYCHIATRIC: Alert and oriented -3. Appropriate affect. Intact judgment and insight. - Labs CBC & Chem 7: 06/14/18 11:26 06/14/18 11:26 Labs: Microbiology - Last 24 Hours (Table) 06/12/18 15:17 Blood Culture - Preliminary Blood No Growth after 72 hours Assessment and Plan Plan: Assessment: #1. Acute influenza A infection and this is mainly in the form of bronchitis. There is no evidence of pneumonia the CAT scan findings. In addition, no other pulmonary lesions or nodules in the lungs are essentially clear. The patient developed increased shortness of breath and reactive bronchospasm and wheezing and the patient is on a combination of bronchodilators and systemic steroids and broad-spectrum antibiotics including Tamiflu and Levaquin. #2. Nausea, vomiting, shortness of breath, related to the above, recovered #3. Leukopenia, mild thrombocytopenia, and the white cell count is at 1.4 #4. Mild hyponatremia, likely related to history of nausea and vomiting, patient is on IV hydration #5. Right-sided ovarian mass measuring 9.2 right 6.0 x 8.9 cm #6. History of right breast cancer with lumpectomy and chemo radiotherapy in 2003 #7. History of transabdominal hysterectomy and left oophorectomy for endometriosis #8. Hypertension, hyperlipidemia #9. Fibromyalgia #10. Osteoarthritis #11. Lifetime nonsmoker Plan In terms of an acute influenza infection, continue Tamiflu. Continue IV Solu- Medrol. Continue DuoNeb nebulized treatments 4 times a day [id number]. Robitussin for cough. Kept on IV fluids to KVO. Reassure the patient on the results of the CAT scan of the chest. We'll continue to follow.
[2018-06-15] MEDS: IPRATROPIUM-ALBUTEROL 3 ML NEB INHALATION SCH (20:01)
[2018-06-15] MEDS: PRAVASTATIN SODIUM 40 MG TAB PO SCH (20:36)
[2018-06-15] MEDS: MELATONIN 3 MG TABLET PO PRN (20:40)
--- NOTE | 2018-06-15 22:20 | P.PN ---
Subjective Progress Note Date: 06/15/18 Principal diagnosis: Acute influenza A infection This is a pleasant 72 years old female with past medical history of GERD, GI bleed, hyperlipidemia, hypertension, osteoarthritis, fibromyalgia, right breast cancer with lumpectomy and status post chemoradiotherapy in 2003. Who presents because of recurrent nausea and vomiting for 3 days, fever and cough. Patient was transferred from [facility] for 3 day history of vomiting, diarrhea and intermittent abdominal pain with fever attended 0.5. She has CT of the abdomen showing possible cystitis and perinephritic stranding on the UA is negative however patient was started on Levaquin and large ovarian mass. Chest x-ray showing right infiltrate. Her nausea vomiting and loose bowel movement have resolved now however she has some coughing. Labs from [facility] reviewed and showing normal knee functions and WBC, mildly low potassium 06/13/2018 Patients with dyspnea and coughing. She looks breathing quietly but she is tachypneic she has some secretions but nothing coming up with her dry cough. She denies chest pain. No abdominal pain or nausea vomiting she has normal bowel movements yesterday and looks like her bowel symptoms have improved. She looks anxious which could be related to her alcohol problem. Patient denies history of asthma or COPD. She says she hasn't smoked before. However she is telling me she uses inhaler at home about twice a week. Pulmonary team evaluated the patient. She is currently on Tamiflu and Levaquin. Normal saline at 75 mL/h.. She is also a considerable protocol. 06/14/2018 Patient denied any complaints of chest pain or worsening shortness of breath. Breathing status improving. Patient is being continued on Tamiflu and antibiotics in the form of Levaquin. Patient was seen by pulmonary. No fever no chills. Continued on IV methylprednisolone. 06/15/2018 Patient says that her breathing is better. Wheezing is also much improved. No fever no chills. Patient is being continued on antibiotics in the form of Levaquin. Continue with Tamiflu. Continue with breathing treatments and steroids. CT of the chest report was reviewed. Anticipate discharge in next 24 hours with more clinical improvement. review of systems CONSTITUTIONAL: No fever, no malaise, no fatigue. HEENT: No recent visual problems or hearing problems. Denied any sore throat. CARDIOVASCULAR: No orthopnea, PND, no palpitations, no syncope. GASTROINTESTINAL: No diarrhea, no nausea, no vomiting, no abdominal pain. Normoactive bowel sounds. NEUROLOGICAL: No headaches, no weakness, no numbness. HEMATOLOGICAL: Denies any bleeding or petechiae. GENITOURINARY: Denies any burning micturition, frequency, or urgency. MUSCULOSKELETAL/RHEUMATOLOGICAL: Denies any joint pain, swelling, or any muscle pain. ENDOCRINE: Denies any polyuria or polydipsia. Objective - Vital Signs Vital signs: Vital Signs Temp 97.8 F 06/15/18 20:26 Pulse 76 06/15/18 20:26 Resp 18 06/15/18 20:26 BP 145/84 06/15/18 20:26 Pulse Ox 98 06/15/18 20:26 Intake & Output 06/15/18 06/15/18 06/16/18 06:59 18:59 06:59 Intake Total 1370 600 Balance 1370 600 Intake: IV 300 600 Sodium Chloride 0.9% 1, 300 600 000 ml @ 75 mls/hr IV . [id number] [facility] Rx#:[id number] Oral 1070 Other: Voiding Method Toilet Toilet # Voids 2 - Exam GENERAL: The patient is alert and oriented x3, not in any acute distress. Well developed, well nourished. HEENT: Pupils are round and equally reacting to light. EOMI. No scleral icterus. No conjunctival pallor. Normocephalic, atraumatic. No pharyngeal erythema. No thyromegaly. CARDIOVASCULAR: S1 and S2 present. No murmurs, rubs, or gallops. -PULMONARY: Bilateral equal air entry, mild expiratory wheezing. coarse breath sounds ABDOMEN: Soft, nontender, nondistended, normoactive bowel sounds. No palpable organomegaly. MUSCULOSKELETAL: No joint swelling or deformity. EXTREMITIES: No cyanosis, clubbing, or pedal edema. NEUROLOGICAL: Gross neurological examination did not reveal any focal deficits. SKIN: No rashes. - Labs CBC & Chem 7: 06/14/18 11:26 06/14/18 11:26 Labs: Microbiology - Last 24 Hours (Table) 06/12/18 15:17 Blood Culture - Preliminary Blood No Growth after 72 hours Assessment and Plan Assessment: Acute influenza a infection. Possible pneumonia. Possible gastroenteritis, improving Recurrent Vomiting, improving Dehydration Large Ovarian Mass, newly diagnosed History of current History of gently Hyperlipidemia Essential hypertension Osteoarthritis History of fibromyalgia History of right breast cancer with lumpectomy and status post chemoradiotherapy in 2003. Plan: This is a pleasant 72 years old female who presents with gastroenteritis and ovarian mass. Continue with antibiotics with Levaquin. IV fluids. advance diet as tolerated. Sent blood culture and sputum culture.oxygen therapy, SCHEDULING ASSISTANT consult for ovarian mass. Labs and medication were reviewed. Continue same treatment. Continue with symptomatic treatment. Resume home medication. Monitor lytes and vitals. DVT and GI prophylaxis. Further recommendations of the clinical course of the patient DVT prophylaxis: Subcutaneous heparin GI Prophylaxis: Pepcid PT/OT: Pending Prognosis is guarded Time with Patient: Greater than 30
[2018-06-16] MEDS: methylPREDNISolone SOD SUCCI 40 MG/ML 1 ML VIAL IV SCH ×3 (00:21→17:46)
[2018-06-16] MEDS: SODIUM CHLORIDE 0.9% 1,000 ML IV SCH (00:22)
[2018-06-16] MEDS: HYDROcodone/APAP 10-325MG 1 EACH TAB PO PRN ×3 (01:11→13:10)
[2018-06-16] MEDS: OSELTAMIVIR 75 MG CAP PO SCH ×2 (05:38→17:42)
[2018-06-16] MEDS: HEPARIN SODIUM,PORCINE 5,000 UNIT/ML 1 ML VIAL SQ SCH ×2 (05:38→17:42)
[2018-06-16] MEDS: METOPROLOL TARTRATE 25 MG TAB PO SCH ×2 (07:54→21:22)
[2018-06-16] MEDS: PANTOPRAZOLE 40 MG TABLET PO SCH ×2 (07:54→17:42)
[2018-06-16] MEDS: VENLAFAXINE HCL ER 150 MG CAP PO SCH (07:54)
[2018-06-16] MEDS: DULoxetine HCL 60 MG CAPSULE.DR PO SCH (07:55)
[2018-06-16] MEDS: GABAPENTIN 100 MG CAP PO SCH ×2 (07:55→21:22)
[2018-06-16] MEDS: THIAMINE 100 MG TAB PO SCH ×2 (07:55→17:42)
[2018-06-16] MEDS: POTASSIUM CHLORIDE ER 20 MEQ TAB.ER PO SCH ×2 (08:00→21:22)
[2018-06-16] MEDS: IPRATROPIUM-ALBUTEROL 3 ML NEB INHALATION SCH ×4 (09:26→20:13)
[2018-06-16] MEDS: FLUTICASONE 50MCG/SPRAY NASAL 16GM NASAL SCH (12:08)
[2018-06-16] MEDS: LEVOFLOXACIN 500MG-D5W PMX 500 MG in DEXTROSE/WATER 1 100ML.BAG IVPB SCH (14:00)
--- NOTE | 2018-06-16 15:00 | P.PN ---
Subjective Progress Note Date: 06/16/18 Patient still wheezy. On oxygen She is very emotional saying that she was to go home. She realizes that she is not ready yet to go home but she wants to go home No chest pain or racing heart No abdominal pain, nausea and vomiting, no diarrhea no constipation Objective - Vital Signs Vital signs: Vital Signs Temp 97.2 F L 06/16/18 13:00 Pulse 74 06/16/18 13:00 Resp 16 06/16/18 13:00 BP 121/80 06/16/18 13:00 Pulse Ox 94 L 06/16/18 13:00 Intake & Output 06/15/18 06/16/18 06/16/18 18:59 06:59 18:59 Intake Total 600 Balance 600 Intake: IV 600 Sodium Chloride 0.9% 1, 600 000 ml @ 10 mls/hr IV . Q24H [facility] Rx#:[id number] Other: Voiding Method Toilet Toilet Toilet # Voids 2 2 - Exam On exam, alert and oriented x3. HEENT: Conjunctivae normal. eyes normal. NECK: No JVD. No thyroid enlargement. No LNs CARDIOVASCULAR: S1, S2 positive RESPIRATION: Patient wheezing bilaterally posteriorly ABDOMEN: Soft, nontender . No guarding. no masses palpable. No ascites, No hepatosplenomegaly.Bowel sounds heard. LEGS: No edema. no swelling NERVOUS SYSTEM: Cranial N 2-12 grossly normal. Moves all 4 limbs. No focal deficits. No sensory deficit. No signs of cerebellar dysfucntion. Skin: no ulcer no rash - Labs CBC & Chem 7: 06/14/18 11:26 06/14/18 11:26 Labs: Microbiology - Last 24 Hours (Table) 06/12/18 15:17 Blood Culture - Preliminary Blood No Growth after 72 hours Assessment and Plan Assessment: - Influenza A - Anxiety - Gastroenteritis - Dehydration - Newly diagnosed ovarian mass - Hypertension - Hyperlipidemia - History of fibromyalgia Plan - Patient still wheezy. We'll continue the breathing treatments, steroids, finish the course of antibiotics - The patient pulmonology recommendations, will continue to monitor - Continue rest of the home medications - GI prophylaxis - We will order for lab work in the morning Time with Patient: Greater than 30
--- NOTE | 2018-06-16 15:24 | P.PN ---
Subjective Progress Note Date: 06/16/18 Principal diagnosis: Acute influenza a infection mainly in the form of bronchitis. This is a 72-year-old white female patient of Dr. Dione Maynard, with past medical history of GERD, hypertension, hyperlipidemia, osteoarthritis, breast cancer status post lumpectomy and chemo radiotherapy in 2004, who was transferred from [facility] on 06/12/2018 where she went for evaluation of 3 day history of vomiting, diarrhea and intermittent abdominal pain. Patient was afebrile, she was having cough, and some shortness of breath as well. CT of the abdomen showed possible cystitis and perinephric stranding, and a large ovarian mass. Chest x-ray showed bilateral lower lobe atelectasis or infiltrate with elevated right hemidiaphragm, and prominence of the right hilum. Influenza screen was positive for influenza A. today's blood work showed white blood cell count of 1.4, hemoglobin of 11.7, sodium of 131, potassium is 4.5, chloride is 95, CO2 was 30, BUN was 9, creatinine is 0.37, LFT 's were within normal limits. Urinalysis showed trace blood, but did not appear infected. Cultures were sent, and are negative. Patient was started on Tamiflu, antibiotic coverage, Levaquin. Patient states she is a lifetime nonsmoker, but she was exposed to secondhand smoke from her ex-. On examination patient is quite wheezy, she has been afebrile while in the hospital. Currently on 2 L per nasal cannula pulse ox is 97%, hemodynamically she stable. She is requesting to go home today. Was evaluated by the SECURITY OPERATIONS ENGINEER service in regards to the cystic ovarian mass. On today's evaluation of 06/15/2018, the patient has no specific complaints. The patient is feeling better. She is less short of breath. Denies having any chest pain. Bronchospasm wheezing is also subsided and improved. The patient remains on a combination of Tamiflu and Levaquin. She had checked positive for influenza. No fever. No chills no night sweats. She remains on DuoNeb nebulized treatments around the clock. She is also on IV Solu Medrol. A CAT scan of the chest was also done yesterday that showed no evidence of any pulmonary lesions or nodules. There is some right apical pleural thickening and scarring and the rest of the lungs are essentially clear. No pneumonia. No pulmonary lesions. No greater than 1 cm mediastinal lymphadenopathy. The patient is seen today on 06/16/2018 in follow-up on the regular medical floor. She is currently sitting up in a chair at the bedside. She is awake and alert in no acute distress. She is still somewhat bronchospastic and wheezy. She is still dyspneic on minimal exertion. Still maintaining O2 saturations in the low 90s on 2 L/m per nasal cannula. A culture reveals no growth. We count 1.4. Hemoglobin 11.7. Creatinine 0.37. He is continued on DuoNeb inhalations and IV Solu-Medrol, Levaquin and Tamiflu. Objective - Vital Signs Vital signs: Vital Signs Temp 97.2 F L 06/16/18 13:00 Pulse 74 06/16/18 13:00 Resp 16 06/16/18 13:00 BP 121/80 06/16/18 13:00 Pulse Ox 94 L 06/16/18 13:00 Intake & Output 06/15/18 06/16/18 06/16/18 18:59 06:59 18:59 Intake Total 600 Balance 600 Intake: IV 600 Sodium Chloride 0.9% 1, 600 000 ml @ 10 mls/hr IV . Q24H [facility] Rx#:[id number] Other: Voiding Method Toilet Toilet Toilet # Voids 2 2 - Exam Gen. appearance: A very pleasant 72-year-old female patient, calm and comfortable likely distress. On 2 L nasal cannula. HEAD: Normocephalic/atraumatic. EYES: Normal reaction of pupils, equal size. Conjunctiva pink, sclera white. NOSE: Clear with pink turbinates. THROAT: No erythema or exudates. NECK: No masses, no JVD, no thyroid enlargement, no adenopathy. CHEST: No chest wall deformity. Symmetrical expansion. LUNGS: Equal air entry with diffuse wheezes CVS: Regular rate and rhythm, normal S1 and S2, no gallops, no murmurs, no rubs ABDOMEN: Soft, nontender. No hepatosplenomegaly, normal bowel sounds, no guarding or rigidity. EXTREMITIES: No clubbing, no edema, no cyanosis, 2+ pulses and upper and lower extremities. MUSCULOSKELETAL: Muscle strength and tone normal. SPINE: No scoliosis or deformity SKIN: No rashes CENTRAL NERVOUS SYSTEM: Alert and oriented -3. No focal deficits, tone is normal in all 4 extremities. PSYCHIATRIC: Appropriate affect. Intact judgment and insight. - Labs CBC & Chem 7: 06/14/18 11:26 06/14/18 11:26 Labs: Microbiology - Last 24 Hours (Table) 06/12/18 15:17 Blood Culture - Preliminary Blood No Growth after 72 hours Assessment and Plan Assessment: Assessment: #1. Acute influenza A infection and this is mainly in the form of bronchitis. There is no evidence of pneumonia the CAT scan findings. In addition, no other pulmonary lesions or nodules in the lungs are essentially clear. The patient developed increased shortness of breath and reactive bronchospasm and wheezing and the patient is on a combination of bronchodilators and systemic steroids and broad-spectrum antibiotics including Tamiflu and Levaquin. #2. Nausea, vomiting, shortness of breath, related to the above, recovered #3. Leukopenia, mild thrombocytopenia, and the white cell count is at 1.4 #4. Mild hyponatremia, likely related to history of nausea and vomiting, patient is on IV hydration #5. Right-sided ovarian mass measuring 9.2 right 6.0 x 8.9 cm #6. History of right breast cancer with lumpectomy and chemo radiotherapy in 2003 #7. History of transabdominal hysterectomy and left oophorectomy for endometriosis #8. Hypertension, hyperlipidemia #9. Fibromyalgia #10. Osteoarthritis #11. Lifetime nonsmoker Plan The patient was seen and evaluated by Dr. Lainez. She is improved but not quite back to her baseline. Not quite ready for discharge. Continue current treatment plan. Increase her activity as tolerated. Value for possible home oxygen. We'll continue to follow make further recommendations based on her clinical status. I, the cosigning physician, performed a history & physical examination of the patient. Lungs sounds with bilateral end expiratory wheeze, diminished. Maintaining good O2 saturations in the 90s on 2 L/m per nasal cannula. I discussed the assessment and plan of care with my nurse practitioner, Ivy Heath. I attest to the above note as dictated by her.
[2018-06-16] MEDS: LORazepam 2 MG/ML INJ IV PRN (15:45)
[2018-06-16] MEDS: PRAVASTATIN SODIUM 40 MG TAB PO SCH (21:22)
[2018-06-17] MEDS: SODIUM CHLORIDE 0.9% 1,000 ML IV SCH ×2 (01:53→23:23)
[2018-06-17] MEDS: methylPREDNISolone SOD SUCCI 40 MG/ML 1 ML VIAL IV SCH ×3 (02:04→16:52)
[2018-06-17] MEDS: OSELTAMIVIR 75 MG CAP PO SCH (05:24)
[2018-06-17] MEDS: HEPARIN SODIUM,PORCINE 5,000 UNIT/ML 1 ML VIAL SQ SCH ×2 (05:25→15:55)
[2018-06-17] MEDS: HYDROcodone/APAP 10-325MG 1 EACH TAB PO PRN ×3 (05:26→19:08)
[2018-06-17] MEDS: IPRATROPIUM-ALBUTEROL 3 ML NEB INHALATION SCH ×4 (07:48→20:18)
[2018-06-17 08:01] LABS: HCT 37.7 % (34.0-46.0); HGB 12.1 gm/dL (11.4-16.0); MCH 30.4 pg (25.0-35.0); MCV 95.1 fL (80.0-100.0); Mean Platelet Volume 8.3; Platelet Count 188 k/uL (150-450); RBC 3.96 m/uL (3.80-5.40); RDW 12.7 % (11.5-15.5); WBC 3.6 k/uL (3.8-10.6)
[2018-06-17 08:18] LABS: Anion Gap 3 mmol/L; Blood Urea Nitrogen 16 mg/dL (7-17); Calcium 9.2 mg/dL (8.4-10.2); Carbon Dioxide 37 mmol/L (22-30); Chloride 95 mmol/L (98-107); Glucose 137 mg/dL (74-99); Potassium 4.8 mmol/L (3.5-5.1); Sodium 135 mmol/L (137-145)
[2018-06-17] MEDS: FLUTICASONE 50MCG/SPRAY NASAL 16GM NASAL SCH (10:05)
[2018-06-17] MEDS: DULoxetine HCL 60 MG CAPSULE.DR PO SCH (10:05)
[2018-06-17] MEDS: VENLAFAXINE HCL ER 150 MG CAP PO SCH (10:07)
[2018-06-17] MEDS: GABAPENTIN 100 MG CAP PO SCH ×2 (10:07→20:20)
[2018-06-17] MEDS: POTASSIUM CHLORIDE ER 20 MEQ TAB.ER PO SCH ×2 (10:07→20:20)
[2018-06-17] MEDS: METOPROLOL TARTRATE 25 MG TAB PO SCH ×2 (10:07→20:20)
[2018-06-17] MEDS: THIAMINE 100 MG TAB PO SCH ×2 (10:08→15:56)
[2018-06-17] MEDS: PANTOPRAZOLE 40 MG TABLET PO SCH ×2 (10:08→16:54)
--- NOTE | 2018-06-17 10:27 | P.PN ---
Subjective Progress Note Date: 06/17/18 Discussed with patient results of ova testing. Results reveal low potential for malignancy, CEA 125 low, total risk low. Objective - Vital Signs Vital signs: Vital Signs Temp 98.3 F 06/17/18 05:00 Pulse 92 06/17/18 10:10 Resp 18 06/17/18 05:00 BP 144/80 06/17/18 05:00 Pulse Ox 82 L 06/17/18 10:10 Intake & Output 06/16/18 06/17/18 06/17/18 18:59 06:59 18:59 Intake Total 240 120 Balance 240 120 Intake: Oral 240 120 Other: Voiding Method Toilet Toilet # Voids 3 3 - Constitutional General appearance: Present: average body habitus, cooperative - Labs CBC & Chem 7: 06/17/18 07:35 06/17/18 07:35 Labs: Abnormal Lab Results - Last 24 Hours (Table) 06/17/18 06/17/18 Range/Units 07:35 07:35 WBC 3.6 L (3.8-10.6) k/uL Sodium 135 L (137-145) mmol/L Chloride 95 L (98-107) mmol/L Carbon Dioxide 37 H (22-30) mmol/L Creatinine 0.51 L (0.52-1.04) mg/dL Glucose 137 H (74-99) mg/dL Microbiology - Last 24 Hours (Table) 06/12/18 15:17 Blood Culture - Preliminary Blood No Growth after 96 hours Assessment and Plan Assessment: Pelvic mass, testing consistent with low risk for malignant potential. Plan: I've discussed with the patient that I will office 2 weeks after discharge. Further planning pending repeat ultrasound in the office and GI consultation. Thank you for the consult. Time with Patient: Less than 30
[2018-06-17] MEDS: LEVOFLOXACIN 500MG-D5W PMX 500 MG in DEXTROSE/WATER 1 100ML.BAG IVPB SCH (15:55)
[2018-06-17] MEDS: ALPRAZolam 0.5 MG TAB PO PRN (15:55)
--- NOTE | 2018-06-17 16:09 | P.PN ---
Subjective Progress Note Date: 06/17/18 Principal diagnosis: Acute influenza a infection mainly in the form of bronchitis. This is a 72-year-old white female patient of Dr. Dione Maynard, with past medical history of GERD, hypertension, hyperlipidemia, osteoarthritis, breast cancer status post lumpectomy and chemo radiotherapy in 2004, who was transferred from [facility] on 06/12/2018 where she went for evaluation of 3 day history of vomiting, diarrhea and intermittent abdominal pain. Patient was afebrile, she was having cough, and some shortness of breath as well. CT of the abdomen showed possible cystitis and perinephric stranding, and a large ovarian mass. Chest x-ray showed bilateral lower lobe atelectasis or infiltrate with elevated right hemidiaphragm, and prominence of the right hilum. Influenza screen was positive for influenza A. today's blood work showed white blood cell count of 1.4, hemoglobin of 11.7, sodium of 131, potassium is 4.5, chloride is 95, CO2 was 30, BUN was 9, creatinine is 0.37, LFT 's were within normal limits. Urinalysis showed trace blood, but did not appear infected. Cultures were sent, and are negative. Patient was started on Tamiflu, antibiotic coverage, Levaquin. Patient states she is a lifetime nonsmoker, but she was exposed to secondhand smoke from her ex-. On examination patient is quite wheezy, she has been afebrile while in the hospital. Currently on 2 L per nasal cannula pulse ox is 97%, hemodynamically she stable. She is requesting to go home today. Was evaluated by the MATERIAL RECLAIMER service in regards to the cystic ovarian mass. On today's evaluation of 06/15/2018, the patient has no specific complaints. The patient is feeling better. She is less short of breath. Denies having any chest pain. Bronchospasm wheezing is also subsided and improved. The patient remains on a combination of Tamiflu and Levaquin. She had checked positive for influenza. No fever. No chills no night sweats. She remains on DuoNeb nebulized treatments around the clock. She is also on IV Solu Medrol. A CAT scan of the chest was also done yesterday that showed no evidence of any pulmonary lesions or nodules. There is some right apical pleural thickening and scarring and the rest of the lungs are essentially clear. No pneumonia. No pulmonary lesions. No greater than 1 cm mediastinal lymphadenopathy. The patient is seen today on 06/16/2018 in follow-up on the regular medical floor. She is currently sitting up in a chair at the bedside. She is awake and alert in no acute distress. She is still somewhat bronchospastic and wheezy. She is still dyspneic on minimal exertion. Still maintaining O2 saturations in the low 90s on 2 L/m per nasal cannula. A culture reveals no growth. We count 1.4. Hemoglobin 11.7. Creatinine 0.37. He is continued on DuoNeb inhalations and IV Solu-Medrol, Levaquin and Tamiflu. The patient is seen today 06/17/2018 in follow-up on the regular medical floor. She is awake and alert in no acute distress. She's been up ambulating in the hallway. She is having issues with desaturations into the 80s and may require home oxygen. He is currently afebrile. Blood culture reveals no growth. White count 3.6. Hemoglobin 12.1. Creatinine 0.51. She completed her Tamiflu today. She remains on antibiotics, bronchodilators, IV Solu-Medrol. Objective - Vital Signs Vital signs: Vital Signs Temp 97.1 F L 06/17/18 12:25 Pulse 64 06/17/18 12:25 Resp 18 06/17/18 12:25 BP 151/84 06/17/18 12:25 Pulse Ox 96 06/17/18 12:25 Intake & Output 06/16/18 06/17/18 06/17/18 18:59 06:59 18:59 Intake Total 240 120 Balance 240 120 Weight 57 kg Intake: Oral 240 120 Other: Voiding Method Toilet Toilet Toilet # Voids 3 3 - Exam Gen. appearance: A very pleasant 72-year-old female patient, calm and comfortable no acute distress. On 2 L nasal cannula. HEAD: Normocephalic/atraumatic. EYES: Normal reaction of pupils, equal size. Conjunctiva pink, sclera white. NOSE: Clear with pink turbinates. THROAT: No erythema or exudates. NECK: No masses, no JVD, no thyroid enlargement, no adenopathy. CHEST: No chest wall deformity. Symmetrical expansion. LUNGS: Equal air entry with expiratory wheeze, diminished CVS: Regular rate and rhythm, normal S1 and S2, no gallops, no murmurs, no rubs ABDOMEN: Soft, nontender. No hepatosplenomegaly, normal bowel sounds, no guarding or rigidity. EXTREMITIES: No clubbing, no edema, no cyanosis, 2+ pulses and upper and lower extremities. MUSCULOSKELETAL: Muscle strength and tone normal. SPINE: No scoliosis or deformity SKIN: No rashes CENTRAL NERVOUS SYSTEM: Alert and oriented -3. No focal deficits, tone is normal in all 4 extremities. PSYCHIATRIC: Appropriate affect. Intact judgment and insight. - Labs CBC & Chem 7: 06/17/18 07:35 06/17/18 07:35 Labs: Abnormal Lab Results - Last 24 Hours (Table) 06/17/18 06/17/18 Range/Units 07:35 07:35 WBC 3.6 L (3.8-10.6) k/uL Sodium 135 L (137-145) mmol/L Chloride 95 L (98-107) mmol/L Carbon Dioxide 37 H (22-30) mmol/L Creatinine 0.51 L (0.52-1.04) mg/dL Glucose 137 H (74-99) mg/dL Microbiology - Last 24 Hours (Table) 06/12/18 15:17 Blood Culture - Preliminary Blood No Growth after 96 hours Assessment and Plan Assessment: Assessment: #1. Acute on chronic hypoxic respiratory failure secondary to acute influenza A infection and this is mainly in the form of bronchitis. There is no evidence of pneumonia the CAT scan findings. In addition, no other pulmonary lesions or nodules in the lungs are essentially clear. The patient developed increased shortness of breath and reactive bronchospasm and wheezing and the patient is on a combination of bronchodilators and systemic steroids and broad-spectrum antibiotics including Levaquin. She completed her Tamiflu today. #2. Nausea, vomiting, shortness of breath, related to the above, recovered #3. Leukopenia, mild thrombocytopenia, and the white cell count is at 3.6 #4. Mild hyponatremia, likely related to history of nausea and vomiting, patient is on IV hydration #5. Right-sided ovarian mass measuring 9.2 right 6.0 x 8.9 cm #6. History of right breast cancer with lumpectomy and chemo radiotherapy in 2003 #7. History of transabdominal hysterectomy and left oophorectomy for endometriosis #8. Hypertension, hyperlipidemia #9. Fibromyalgia #10. Osteoarthritis #11. Lifetime nonsmoker Plan The patient was seen and evaluated by Dr. Lainez. She is still desaturating into the low 80s during ambulation. Will most likely require home oxygen. Not quite ready for discharge. Continue current treatment plan. Increase her activity as tolerated. We'll continue to follow and make further recommendations based on her clinical status. I, the cosigning physician, performed a history & physical examination of the patient. Lungs sounds with bilateral end expiratory wheeze, diminished. Maintaining good O2 saturations in the 90s on 2 L/m per nasal cannula. I discussed the assessment and plan of care with my nurse practitioner, Ivy Heath. I attest to the above note as dictated by her.
--- NOTE | 2018-06-17 19:09 | P.PN ---
Subjective 06/16 Patient still wheezy. On oxygen She is very emotional saying that she was to go home. She realizes that she is not ready yet to go home but she wants to go home No chest pain or racing heart No abdominal pain, nausea and vomiting, no diarrhea no constipation 06/17 Patient desaturating to 80 while ambulating. Wheezing improved but not totally gone Says feeling better than yesterday. Objective - Vital Signs Vital signs: Vital Signs Temp 97.1 F L 06/17/18 12:25 Pulse 96 06/17/18 17:07 Resp 18 06/17/18 17:01 BP 151/84 06/17/18 12:25 Pulse Ox 90 L 06/17/18 17:07 Intake & Output 06/17/18 06/17/18 06/18/18 06:59 18:59 06:59 Intake Total 120 380 Balance 120 380 Weight 57 kg Intake: Oral 120 380 Other: Voiding Method Toilet Toilet # Voids 3 1 - Exam On exam, alert and oriented x3. HEENT: Conjunctivae normal. eyes normal. NECK: No JVD. No thyroid enlargement. No LNs CARDIOVASCULAR: S1, S2 positive RESPIRATION: Patient wheezing bilaterally posteriorly ABDOMEN: Soft, nontender . No guarding. no masses palpable. No ascites, No hepatosplenomegaly.Bowel sounds heard. LEGS: No edema. no swelling NERVOUS SYSTEM: Cranial N 2-12 grossly normal. Moves all 4 limbs. No focal deficits. No sensory deficit. No signs of cerebellar dysfucntion. Skin: no ulcer no rash - Labs CBC & Chem 7: 06/17/18 07:35 06/17/18 07:35 Labs: Abnormal Lab Results - Last 24 Hours (Table) 06/17/18 06/17/18 Range/Units 07:35 07:35 WBC 3.6 L (3.8-10.6) k/uL Sodium 135 L (137-145) mmol/L Chloride 95 L (98-107) mmol/L Carbon Dioxide 37 H (22-30) mmol/L Creatinine 0.51 L (0.52-1.04) mg/dL Glucose 137 H (74-99) mg/dL Microbiology - Last 24 Hours (Table) 06/12/18 15:17 Blood Culture - Preliminary Blood No Growth after 120 hours Assessment and Plan Assessment: - Influenza A - Anxiety - Gastroenteritis - Dehydration - Newly diagnosed ovarian mass - Hypertension - Hyperlipidemia - History of fibromyalgia Plan - Patient still wheezy. - We'll continue the breathing treatments, steroids, finish the course of antibiotics - Will need oxygen for home - Conitnue current treatment - Will f/u Time with Patient: Greater than 30
[2018-06-17] MEDS: PRAVASTATIN SODIUM 40 MG TAB PO SCH (20:20)
[2018-06-17] MEDS: MELATONIN 3 MG TABLET PO PRN (22:08)
[2018-06-18] MEDS: methylPREDNISolone SOD SUCCI 40 MG/ML 1 ML VIAL IV SCH ×3 (00:18→16:48)
[2018-06-18] MEDS: HYDROcodone/APAP 10-325MG 1 EACH TAB PO PRN ×4 (00:19→18:15)
[2018-06-18] MEDS: HEPARIN SODIUM,PORCINE 5,000 UNIT/ML 1 ML VIAL SQ SCH ×2 (05:57→16:48)
[2018-06-18] MEDS: IPRATROPIUM-ALBUTEROL 3 ML NEB INHALATION SCH ×3 (06:09→15:38)
[2018-06-18 08:57] VITALS: RESP 18; TEMP 97
[2018-06-18] MEDS: METOPROLOL TARTRATE 25 MG TAB PO SCH (09:18)
[2018-06-18] MEDS: GABAPENTIN 100 MG CAP PO SCH (09:18)
[2018-06-18] MEDS: POTASSIUM CHLORIDE ER 20 MEQ TAB.ER PO SCH (09:19)
[2018-06-18] MEDS: PANTOPRAZOLE 40 MG TABLET PO SCH ×3 (09:19→16:54)
[2018-06-18] MEDS: FLUTICASONE 50MCG/SPRAY NASAL 16GM NASAL SCH (09:22)
[2018-06-18] MEDS: VENLAFAXINE HCL ER 150 MG CAP PO SCH (09:23)
[2018-06-18] MEDS: DULoxetine HCL 60 MG CAPSULE.DR PO SCH (09:23)
[2018-06-18] MEDS: THIAMINE 100 MG TAB PO SCH ×2 (09:24→16:54)
[2018-06-18] MEDS: ALPRAZolam 0.5 MG TAB PO PRN (11:16)
[2018-06-18 12:03] VITALS: BP 134/81; PULSE 65
--- NOTE | 2018-06-18 14:16 | P.PN ---
Subjective Progress Note Date: 06/18/18 Principal diagnosis: Acute influenza a infection mainly in the form of bronchitis. This is a 72-year-old white female patient of Dr. Dione Maynard, with past medical history of GERD, hypertension, hyperlipidemia, osteoarthritis, breast cancer status post lumpectomy and chemo radiotherapy in 2004, who was transferred from [facility] on 06/12/2018 where she went for evaluation of 3 day history of vomiting, diarrhea and intermittent abdominal pain. Patient was afebrile, she was having cough, and some shortness of breath as well. CT of the abdomen showed possible cystitis and perinephric stranding, and a large ovarian mass. Chest x-ray showed bilateral lower lobe atelectasis or infiltrate with elevated right hemidiaphragm, and prominence of the right hilum. Influenza screen was positive for influenza A. today's blood work showed white blood cell count of 1.4, hemoglobin of 11.7, sodium of 131, potassium is 4.5, chloride is 95, CO2 was 30, BUN was 9, creatinine is 0.37, LFT 's were within normal limits. Urinalysis showed trace blood, but did not appear infected. Cultures were sent, and are negative. Patient was started on Tamiflu, antibiotic coverage, Levaquin. Patient states she is a lifetime nonsmoker, but she was exposed to secondhand smoke from her ex-. On examination patient is quite wheezy, she has been afebrile while in the hospital. Currently on 2 L per nasal cannula pulse ox is 97%, hemodynamically she stable. She is requesting to go home today. Was evaluated by the PATIENT CARE REPRESENTATIVE service in regards to the cystic ovarian mass. On today's evaluation of 06/15/2018, the patient has no specific complaints. The patient is feeling better. She is less short of breath. Denies having any chest pain. Bronchospasm wheezing is also subsided and improved. The patient remains on a combination of Tamiflu and Levaquin. She had checked positive for influenza. No fever. No chills no night sweats. She remains on DuoNeb nebulized treatments around the clock. She is also on IV Solu Medrol. A CAT scan of the chest was also done yesterday that showed no evidence of any pulmonary lesions or nodules. There is some right apical pleural thickening and scarring and the rest of the lungs are essentially clear. No pneumonia. No pulmonary lesions. No greater than 1 cm mediastinal lymphadenopathy. The patient is seen today on 06/16/2018 in follow-up on the regular medical floor. She is currently sitting up in a chair at the bedside. She is awake and alert in no acute distress. She is still somewhat bronchospastic and wheezy. She is still dyspneic on minimal exertion. Still maintaining O2 saturations in the low 90s on 2 L/m per nasal cannula. A culture reveals no growth. We count 1.4. Hemoglobin 11.7. Creatinine 0.37. He is continued on DuoNeb inhalations and IV Solu-Medrol, Levaquin and Tamiflu. The patient is seen today 06/17/2018 in follow-up on the regular medical floor. She is awake and alert in no acute distress. She's been up ambulating in the hallway. She is having issues with desaturations into the 80s and may require home oxygen. He is currently afebrile. Blood culture reveals no growth. White count 3.6. Hemoglobin 12.1. Creatinine 0.51. She completed her Tamiflu today. She remains on antibiotics, bronchodilators, IV Solu-Medrol. The patient was seen today 06/18/2017 in follow-up on the regular medical floor. She is currently resting comfortably in bed. She is awake and alert in no acute distress. She is maintaining good O2 saturations in the 90s on 2 L per nasal cannula. She has qualified for home oxygen based on her desaturations into the low 80s secondary to her suspected underlying chronic obstructive pulmonary disease and acute bronchitis with influenza. Blood cultures reveal no growth. She remains on Levaquin, Solu-Medrol, bronchodilators. Objective - Vital Signs Vital signs: Vital Signs Temp 97 F L 06/18/18 12:00 Pulse 65 06/18/18 12:00 Resp 18 06/18/18 12:00 BP 134/81 06/18/18 12:00 Pulse Ox 93 L 06/18/18 12:00 Intake & Output 06/17/18 06/18/18 06/18/18 18:59 06:59 18:59 Intake Total 380 Balance 380 Weight 57 kg Intake: Oral 380 Other: Voiding Method Toilet Toilet Toilet # Voids 1 2 2 - Exam Gen. appearance: A very pleasant 72-year-old female patient, calm and comfortable no acute distress. On 2 L nasal cannula. HEAD: Normocephalic/atraumatic. EYES: Normal reaction of pupils, equal size. Conjunctiva pink, sclera white. NOSE: Clear with pink turbinates. THROAT: No erythema or exudates. NECK: No masses, no JVD, no thyroid enlargement, no adenopathy. CHEST: No chest wall deformity. Symmetrical expansion. LUNGS: Equal air entry with expiratory wheeze, diminished CVS: Regular rate and rhythm, normal S1 and S2, no gallops, no murmurs, no rubs ABDOMEN: Soft, nontender. No hepatosplenomegaly, normal bowel sounds, no guarding or rigidity. EXTREMITIES: No clubbing, no edema, no cyanosis, 2+ pulses and upper and lower extremities. MUSCULOSKELETAL: Muscle strength and tone normal. SPINE: No scoliosis or deformity SKIN: No rashes CENTRAL NERVOUS SYSTEM: Alert and oriented -3. No focal deficits, tone is normal in all 4 extremities. PSYCHIATRIC: Appropriate affect. Intact judgment and insight. - Labs CBC & Chem 7: 06/17/18 07:35 06/17/18 07:35 Labs: Microbiology - Last 24 Hours (Table) 06/12/18 15:17 Blood Culture - Preliminary Blood No Growth after 120 hours Assessment and Plan Assessment: Assessment: #1. Acute on chronic hypoxic respiratory failure secondary to acute influenza A infection and this is mainly in the form of bronchitis. There is no evidence of pneumonia the CAT scan findings. In addition, no other pulmonary lesions or nodules in the lungs are essentially clear. The patient developed increased shortness of breath and reactive bronchospasm and wheezing and the patient is on a combination of bronchodilators and systemic steroids and broad-spectrum antibiotics including Levaquin. She completed her Tamiflu. She has continued to require oxygen supplementation and the form of 2 L/m per nasal cannula to maintain O2 saturations in the 90s. #2. Nausea, vomiting, shortness of breath, related to the above, recovered #3. Leukopenia, mild thrombocytopenia, and the white cell count is at 3.6 #4. Mild hyponatremia, likely related to history of nausea and vomiting, patient is on IV hydration #5. Right-sided ovarian mass measuring 9.2 right 6.0 x 8.9 cm #6. History of right breast cancer with lumpectomy and chemo radiotherapy in 2004 #7. History of transabdominal hysterectomy and left oophorectomy for endometriosis #8. Hypertension, hyperlipidemia #9. Fibromyalgia #10. Osteoarthritis #11. Lifetime nonsmoker Plan The patient was seen and evaluated by Dr. Lainez. She is still desaturating into the low 80s during ambulation. Home oxygen has been arranged. He should complete a prednisone burst and taper. Complete her course of antibiotics. She should follow-up in our office in 1-2 weeks' time. She'll have full pulmonary function testing to evaluate the suspected underlying chronic obstructive pulmonary disease and make further recommendations regarding maintenance medications. She is however encouraged to call sooner with any recurrence of symptoms or other questions or concerns. I, the cosigning physician, performed a history & physical examination of the patient. Lungs sounds with bilateral end expiratory wheeze, diminished. Maintaining good O2 saturations in the 90s on 2 L/m per nasal cannula. I discussed the assessment and plan of care with my nurse practitioner, Ivy Heath. I attest to the above note as dictated by her.
--- NOTE | 2018-06-18 15:30 | P.DS ---
Providers Date of admission: 06/12/18 13:07 Expected date of discharge: 06/18/18 Attending physician: Robert Sparks MD Consults: 06/12/18 13:56 Consult Physician Routine Consulting Provider: Sadie Melissa Consult Reason/Comments: Ovarian Mass Do you want consulting provider notified?: Yes Placement Type Exists?: Yes 06/13/18 10:40 Consult Physician Urgent Consulting Provider: Catia Cummings Consult Reason/Comments: pneumonia and influenza Do you want consulting provider notified?: Yes Primary care physician: Dione Maynard [facility] Course: Discharge diagnosis - Influenza A - Reactive airway disease with wheezing - Anxiety - Newly diagnosed ovarian mass - Dehydration - Hyperlipidemia - Hypertension Hospital course 72-year-old female with a past medical history significant for breast cancer GERD hypertension hyperlipidemia comes in as a transfer from [facility]. She was recently admitted to [facility] on 06/12/2018 where she was admitted for nausea vomiting diarrhea gastroenteritis. She was also having cough and shortness of breath. CT of the abdomen done shows cystitis and large ovarian mass. Chest x-ray shows bilateral atelectasis or infiltrate. She was influenza A positive. Patient was started on Tamiflu and Levaquin. She ascended over here for further evaluation and management She was seen by pulmonology and gynecology in our hospital. She was started on IV steroids, Levaquin and Tamiflu continued. She was started on IV fluids. She was given breathing treatments. She slowly started to improve. She was requiring oxygen so she will be discharged on oxygen at home. On 06/18/2018 On exam, alert and oriented x3. HEENT: Conjunctivae normal. eyes normal. NECK: No JVD. No thyroid enlargement. No LNs CARDIOVASCULAR: S1, S2 muffled. No murmur RESPIRATION: She is having wheezing bilaterally but much improved than before. ABDOMEN: Soft, nontender . No guarding. no masses palpable. No ascites, No hepatosplenomegaly.Bowel sounds heard. LEGS: No edema. no swelling NERVOUS SYSTEM: Cranial N 2-12 grossly normal. Moves all 4 limbs. No focal deficits. No sensory deficit. No signs of cerebellar dysfucntion. Skin: no ulcer no rash He is to follow with pulmonology as an outpatient for outpatient workup to diagnose COPD She is to follow closely with gynecology for further workup of the ovarian mass She is to follow with the primary care doctor Patient Condition at Discharge: Fair Plan - Discharge Summary Discharge Rx Participant: No New Discharge Prescriptions: New guaiFENesin SYRUP 100MG/5ML [Robitussin] 200 mg PO Q6H PRN #200 ml PRN Reason: Cough Ipratropium-Albuterol Nebulize [Duoneb 0.5 mg-3 mg/3 ml Soln] 3 ml INHALATION RT-QID #60 ampul.neb Levofloxacin 500Mg-D5w Pmx [Levaquin 500Mg-D5w Pmx] 500 mg IVPB Q24H #4 bag predniSONE 10 mg PO DIRECTED #60 tab Continue rOPINIRole HCL [Requip] 1 mg PO HS Pravastatin Sodium [Pravachol] 40 mg PO HS Omeprazole [PriLOSEC] 20 mg PO AC-BID HYDROcodone/APAP 10-325MG [Mar Lin 10-325] 1 tab PO Q6HR PRN PRN Reason: Pain Metoprolol Tartrate [Lopressor] 25 mg PO BID Potassium Chloride [Klor-Con 20] 20 meq PO BID Fluticasone Nasal Emmett [Flonase Nasal Emmett] 1 spray NASAL DAILY Venlafaxine HCl ER [Effexor XR] 150 mg PO DAILY DULoxetine HCL [Cymbalta] 60 mg PO DAILY Albuterol Sulfate [Proair Respiclick] 1 puff INHALATION RT-DAILY Discharge Medication List Albuterol Sulfate [Proair Respiclick] 1 puff INHALATION RT-DAILY 06/12/18 [ History] DULoxetine HCL [Cymbalta] 60 mg PO DAILY 06/12/18 [History] Fluticasone Nasal Emmett [Flonase Nasal Emmett] 1 spray NASAL DAILY 06/12/18 [ History] HYDROcodone/APAP 10-325MG [Mar Lin 10-325] 1 tab PO Q6HR PRN 06/12/18 [History] Metoprolol Tartrate [Lopressor] 25 mg PO BID 06/12/18 [History] Omeprazole [PriLOSEC] 20 mg PO AC-BID 06/12/18 [History] Potassium Chloride [Klor-Con 20] 20 meq PO BID 06/12/18 [History] Pravastatin Sodium [Pravachol] 40 mg PO HS 06/12/18 [History] Venlafaxine HCl ER [Effexor XR] 150 mg PO DAILY 06/12/18 [History] rOPINIRole HCL [Requip] 1 mg PO HS 06/12/18 [History] Ipratropium-Albuterol Nebulize [Duoneb 0.5 mg-3 mg/3 ml Soln] 3 ml INHALATION RT -QID #60 ampul.neb 06/18/18 [Rx] Levofloxacin 500Mg-D5w Pmx [Levaquin 500Mg-D5w Pmx] 500 mg IVPB Q24H #4 bag 01/26 [Rx] guaiFENesin SYRUP 100MG/5ML [Robitussin] 200 mg PO Q6H PRN #200 ml 06/18/18 [Rx] predniSONE 10 mg PO DIRECTED #60 tab 06/18/18 [Rx] Follow up Appointment(s)/Referral(s): Sadie Melissa MD [STAFF PHYSICIAN] - 1 Week (Patient to call Dr. Melissa's office Wednesday to schedule follow up appointment. The office is closed at time of discharge. ) [facility], [NON-STAFF] - 1 Week Dione Maynard MD [Primary Care Provider] - 1 Week (Patient to call Dr. Maynard's office Wednesday to schedule follow up appointment. The office is closed at time of discharge. ) Patient Instructions/Handouts: Ovarian Cyst (DC), Influenza (DC), Weakness (DC) Activity/Diet/Wound Care/Special Instructions: DR. Melissa enforced importance of keeping her appointment with her. Diet as tolerated Activity limited until seen by Dr. Hamilton Disposition: HOME SELF-CARE
[2018-06-18] MEDS: LEVOFLOXACIN 500MG-D5W PMX 500 MG in DEXTROSE/WATER 1 100ML.BAG IVPB SCH (16:47)
== END 2018-06-18 18:30 | disposition home health service (06) | DRG 193 ==
LOC: 3NMEDONC 13:07
PROVIDERS: ADMIT Internal Medicine; ATTEND Internal Medicine
DX: J10.1 Influenza due to other identified influenza virus with other respiratory manifestations (principal); J96.21 Acute and chronic respiratory failure with hypoxia; E87.1 Hypo-osmolality and hyponatremia; J44.0 Chronic obstructive pulmonary disease with (acute) lower respiratory infection; D69.6 Thrombocytopenia, unspecified; J10.2 Influenza due to other identified influenza virus with gastrointestinal manifestations; J20.8 Acute bronchitis due to other specified organisms; E86.0 Dehydration; E78.5 Hyperlipidemia, unspecified; E78.00 Pure hypercholesterolemia, unspecified; J45.909 Unspecified asthma, uncomplicated; F41.9 Anxiety disorder, unspecified; I10 Essential (primary) hypertension; N83.9 Noninflammatory disorder of ovary, fallopian tube and broad ligament, unspecified; K21.9 Gastro-esophageal reflux disease without esophagitis; M19.90 Unspecified osteoarthritis, unspecified site; M79.7 Fibromyalgia; Z79.899 Other long term (current) drug therapy; Z85.3 Personal history of malignant neoplasm of breast; Z92.3 Personal history of irradiation; Z92.21 Personal history of antineoplastic chemotherapy; Z87.19 Personal history of other diseases of the digestive system; Z87.01 Personal history of pneumonia (recurrent); Z98.891 History of uterine scar from previous surgery; Z87.42 Personal history of other diseases of the female genital tract; Z90.49 Acquired absence of other specified parts of digestive tract; Z90.710 Acquired absence of both cervix and uterus; Z90.721 Acquired absence of ovaries, unilateral; Z77.22 Contact with and (suspected) exposure to environmental tobacco smoke (acute) (chronic); Z88.1 Allergy status to other antibiotic agents; Z88.5 Allergy status to narcotic agent; Z82.49 Family history of ischemic heart disease and other diseases of the circulatory system; Z80.6 Family history of leukemia; Z80.0 Family history of malignant neoplasm of digestive organs; N30.90 Cystitis, unspecified without hematuria
CPT/HCPCS: 71045; 71260; 76830; 76856; 80048; 80053; 81001; 81503; 85025; 85027; 87040; 87502; 94640; 94760